=== PATIENT | male | born 1970 | race African-American/Black ===

== ENCOUNTER 2021-04-24 14:55 | Inpatient (IN) | payer OTHER ==
[2021-04-24] MEDS ORDERED: ACETAMINOPHEN 1000 MG/100 ML BAG IVPB ONE (16:29)
[2021-04-24] MEDS ORDERED: ACETAMINOPHEN INJECTION 100 ML IVPB ONE (17:00)
[2021-04-24] MEDS ORDERED: VANCOMYCIN PREMIX 1.75 GM 1,750 MG/350 ML PIGGYBACK IVPB ONE (17:33)
[2021-04-24] MEDS ORDERED: CEFEPIME HCL/D5W 2 GM/50 ML BAG IVPB ONE (17:33)
[2021-04-24] MEDS ORDERED: CEFEPIME 2 GM/100 ML BAG IVPB ONE (17:45)
[2021-04-24 18:24] LABS: BASO % 0.6 % (0-2.0); EOS % 1.5 % (0-4.5); HEMATOCRIT 30.8 % (35.4-49); HEMOGLOBIN 9.9 GM/dL (11.7-16.9); LYMPH % 8.9 % (8-40); MCH 26.8 pg (25.7-33.7); MCHC 32.3 g/dl (32.0-35.9); MEAN CELL VOLUME 83.1 fl (80-96); MEAN PLT VOLUME 6.3 fl (7.5-11.1); MONO % 4.3 % (3.8-10.2); NEUT % 84.7 % (42.8-82.8); PLATELET COUNT 595 10^3/uL (134-434); RBC 3.71 M/mm3 (4.00-5.60); RDW 15.8 % (11.9-15.9); WHITE BLOOD COUNT 20.9 K/mm3 (4.0-10.0)
[2021-04-24 18:29] LABS: INR 1.13 (0.83-1.09)
[2021-04-24 18:32] LABS: ACTIVATED PTT 38.3 SECONDS (25.2-36.5)
[2021-04-24 18:59] LABS: CHLORIDE 96 mmol/L (98-107); SODIUM 137 mmol/L (136-145)
[2021-04-24 19:01] LABS: CALCIUM 10.1 mg/dL (8.5-10.1)
[2021-04-24 19:02] LABS: ALBUMIN 2.6 g/dl (3.4-5.0); ANION GAP 13 MMOL/L (8-16); BLOOD UREA NITROGEN 70.1 mg/dL (7-18); CO2 28 mmol/L (21-32); GLUCOSE,RANDOM 104 mg/dL (74-106)
[2021-04-24 19:05] LABS: PHOSPHOROUS 5.8 mg/dL (2.5-4.9); SGOT/AST 14 U/L (15-37); SGPT/ALT 12 U/L (13-61)
[2021-04-24 19:07] LABS: BILIRUBIN,TOTAL 0.4 mg/dL (0.2-1); TOT PROT 9.2 g/dl (6.4-8.2)
[2021-04-24] MEDS ORDERED: SODIUM CHLORIDE 0.9% 500 ML INFUS.BAG IV ONE ×2 (19:07→22:30)
[2021-04-24 19:08] LABS: ALK PHOS 103 U/L (45-117)
[2021-04-24 19:16] LABS: CREATININE 7.8 mg/dL (0.55-1.3)
[2021-04-24 20:20] LABS: ANISOCYTOSIS 1+; MACROCYTOSIS 1+
[2021-04-24 22:56] LABS: EPI CELLS 1 /uL (0-25.1); HYALINE CASTS 0 /uL (0-3.1); URINE APPEARANCE CLEAR; URINE BACTERIA 2 /uL (0-1359); URINE BILIRUBIN 1+ (NEGATIVE); URINE COLOR ORANGE; URINE GLUCOSE (UA) NEGATIVE (NEGATIVE); URINE KETONE NEGATIVE (NEGATIVE); URINE LEUK ESTERASE TRACE (NEGATIVE); URINE NITRITE NEGATIVE (NEGATIVE); URINE PROTEIN 3+ (NEGATIVE); URINE UROBILINOGEN 0.2 mg/dL (0.2-1.0); URINE WBC 4 /uL (0-25.8)
[2021-04-24] MEDS ORDERED: ACETAMINOPHEN 325 MG TABLET (FP) PO PRN ×2 (23:01→23:10)
[2021-04-24] MEDS ORDERED: ACETAMINOPHEN WITH CODEINE 300MG/30MG TABLET PO PRN (23:06)
[2021-04-24 23:39] LABS: URINE RBC 22.4 /uL (0-23.9)
[2021-04-25] MEDS ORDERED: DIVALPROEX SODIUM 125 MG SPRINKLE CAPS PO SCH ×4 (00:09→22:00)
[2021-04-25] MEDS ORDERED: MELATONIN 5 MG TABLETS PO ONE (00:12)
[2021-04-25] MEDS ORDERED: SENNOSIDES 8.6MG TABLET (FP) PO PRN (00:13)
[2021-04-25] MEDS ORDERED: ONDANSETRON 4 MG TABLET PO PRN (00:18)
[2021-04-25] MEDS ORDERED: VALPROATE SODIUM 500 MG/5 ML VIAL IVPB SCH ×2 (03:45→12:00)
[2021-04-25] MEDS: NYSTATIN POWDER 100,000 UNITS/GM - 15 GM TOPICAL POWDER TP SCH ×3 (07:25→22:08)
[2021-04-25] MEDS: GABAPENTIN 100 MG CAPSULE PO SCH ×4 (07:26→22:11)
[2021-04-25] MEDS: CALCIUM ACETATE 667 MG CAPSULE (FP) PO SCH ×3 (07:26→18:47)
[2021-04-25] MEDS: BENZTROPINE MESYLATE 2 MG TABLET PO SCH ×2 (08:59→22:08)
[2021-04-25] MEDS: OLANZapine 10 MG TABLET PO SCH (09:00)
[2021-04-25] MEDS: CARVEDILOL 6.25 MG TABLET (FP) PO SCH ×2 (09:00→22:07)
[2021-04-25] MEDS: POLYETHYLENE GLYCOL (HEALTHYLAX) 3350 17 GM PACKET PO SCH (09:00)
[2021-04-25] MEDS: VITAMIN B COMP W-C 1 EA TABLET (NEPHRO-VITE) PO SCH ×2 (09:00→18:47)
[2021-04-25 09:25] LABS: HEMATOCRIT 27.7 % (35.4-49); HEMOGLOBIN 8.9 GM/dL (11.7-16.9); MCH 26.7 pg (25.7-33.7); MCHC 32.1 g/dl (32.0-35.9); MEAN CELL VOLUME 83.3 fl (80-96); MEAN PLT VOLUME 6.4 fl (7.5-11.1); PLATELET COUNT 501 10^3/uL (134-434); RBC 3.33 M/mm3 (4.00-5.60); RDW 15.5 % (11.9-15.9); WHITE BLOOD COUNT 22.2 K/mm3 (4.0-10.0)
[2021-04-25 09:29] LABS: CHLORIDE 100 mmol/L (98-107); SODIUM 135 mmol/L (136-145)
[2021-04-25 09:32] LABS: ANION GAP 14 MMOL/L (8-16); CALCIUM 9.1 mg/dL (8.5-10.1); CO2 21 mmol/L (21-32); GLUCOSE,RANDOM 109 mg/dL (74-106)
[2021-04-25 09:33] LABS: BLOOD UREA NITROGEN 78.4 mg/dL (7-18)
[2021-04-25 09:36] LABS: PHOSPHOROUS 6.1 mg/dL (2.5-4.9)
[2021-04-25] MEDS ORDERED: ASPIRIN 81 MG CHEWABLE TABLETS PO SCH (10:00)
[2021-04-25] MEDS ORDERED: SODIUM CHLORIDE 250 ML IV PRN (12:00)
[2021-04-25] MEDS ORDERED: EPOETIN ALFA-EPBX 4,000 UNIT/ML VIAL IVPUSH ONE (12:00)
[2021-04-25 12:11] LABS: ANISOCYTOSIS 1+; MACROCYTOSIS 0; TARGET CELLS 1+
[2021-04-25] MEDS ORDERED: MEROPENEM 1 GM in DEXTROSE 5%-WATER 100 ML IVPB SCH (15:00)
[2021-04-25] MEDS: MEROPENEM 500 MG in DEXTROSE 5%-WATER 100 ML IVPB SCH (19:55)
[2021-04-25] MEDS: DIVALPROEX SODIUM 125 MG SPRINKLE CAPS PO SCH (19:56)
[2021-04-25] MEDS: MELATONIN 1 MG TABLET PO SCH (22:07)
[2021-04-26] MEDS: GABAPENTIN 100 MG CAPSULE PO SCH ×3 (05:51→21:10)
[2021-04-26 07:54] LABS: BASO % 0.3 % (0-2.0); EOS % 0.9 % (0-4.5); HEMATOCRIT 25.2 % (35.4-49); HEMOGLOBIN 8.5 GM/dL (11.7-16.9); LYMPH % 8.7 % (8-40); MCH 27.7 pg (25.7-33.7); MCHC 33.5 g/dl (32.0-35.9); MEAN CELL VOLUME 82.6 fl (80-96); MEAN PLT VOLUME 6.1 fl (7.5-11.1); MONO % 6.3 % (3.8-10.2); NEUT % 83.8 % (42.8-82.8); PLATELET COUNT 436 10^3/uL (134-434); RBC 3.06 M/mm3 (4.00-5.60); RDW 15.5 % (11.9-15.9); WHITE BLOOD COUNT 20.4 K/mm3 (4.0-10.0)
[2021-04-26] MEDS: CALCIUM ACETATE 667 MG CAPSULE (FP) PO SCH ×3 (08:12→17:35)
[2021-04-26 09:50] LABS: ANISOCYTOSIS 2+; MACROCYTOSIS 0
[2021-04-26] MEDS ORDERED: DIVALPROEX SODIUM 125 MG SPRINKLE CAPS PO SCH (10:00)
[2021-04-26] MEDS: CARVEDILOL 6.25 MG TABLET (FP) PO SCH ×2 (10:14→21:10)
[2021-04-26] MEDS: BENZTROPINE MESYLATE 2 MG TABLET PO SCH ×2 (10:14→21:10)
[2021-04-26] MEDS: VITAMIN B COMP W-C 1 EA TABLET (NEPHRO-VITE) PO SCH (10:16)
[2021-04-26] MEDS: POLYETHYLENE GLYCOL (HEALTHYLAX) 3350 17 GM PACKET PO SCH (10:16)
[2021-04-26] MEDS: OLANZapine 10 MG TABLET PO SCH (10:17)
[2021-04-26] MEDS: NYSTATIN POWDER 100,000 UNITS/GM - 15 GM TOPICAL POWDER TP SCH ×2 (10:17→21:10)
[2021-04-26] MEDS: DIVALPROEX SODIUM 125 MG SPRINKLE CAPS PO SCH (11:37)
[2021-04-26] MEDS: AMINO ACIDS/PROTEIN HYDROLYS 30 ML LIQUID.PKT PO SCH (17:35)
[2021-04-26] MEDS: MEROPENEM 500 MG in DEXTROSE 5%-WATER 100 ML IVPB SCH ×2 (18:31)
[2021-04-26] MEDS: MELATONIN 1 MG TABLET PO SCH (21:10)
[2021-04-26] MEDS: DIVALPROEX SODIUM 500 MG TABLET E.C. PO SCH (21:10)
[2021-04-27] MEDS: GABAPENTIN 100 MG CAPSULE PO SCH ×3 (05:40→21:40)
[2021-04-27] MEDS: AMINO ACIDS/PROTEIN HYDROLYS 30 ML LIQUID.PKT PO SCH ×3 (08:00→18:12)
[2021-04-27 08:34] LABS: BASO % 0.4 % (0-2.0); EOS % 1.7 % (0-4.5); HEMATOCRIT 22.9 % (35.4-49); HEMOGLOBIN 7.6 GM/dL (11.7-16.9); LYMPH % 7.9 % (8-40); MCH 27.2 pg (25.7-33.7); MCHC 32.9 g/dl (32.0-35.9); MEAN CELL VOLUME 82.6 fl (80-96); MEAN PLT VOLUME 6.2 fl (7.5-11.1); MONO % 4.6 % (3.8-10.2); NEUT % 85.4 % (42.8-82.8); PLATELET COUNT 452 10^3/uL (134-434); RBC 2.78 M/mm3 (4.00-5.60); RDW 15.7 % (11.9-15.9); WHITE BLOOD COUNT 23.3 K/mm3 (4.0-10.0)
[2021-04-27 08:57] LABS: CALCIUM 9.4 mg/dL (8.5-10.1)
[2021-04-27 08:58] LABS: ALBUMIN 2.2 g/dl (3.4-5.0); BLOOD UREA NITROGEN 55.1 mg/dL (7-18)
[2021-04-27 09:01] LABS: CREATININE 6.7 mg/dL (0.55-1.3)
[2021-04-27 09:03] LABS: BILIRUBIN,TOTAL 0.3 mg/dL (0.2-1); TOT PROT 7.4 g/dl (6.4-8.2)
[2021-04-27] MEDS: DIVALPROEX SODIUM 500 MG TABLET E.C. PO SCH ×2 (09:30→21:40)
[2021-04-27] MEDS: ACETAMINOPHEN WITH CODEINE 300MG/30MG TABLET PO PRN (09:30)
[2021-04-27] MEDS: CARVEDILOL 6.25 MG TABLET (FP) PO SCH ×2 (09:31→21:40)
[2021-04-27] MEDS: OLANZapine 10 MG TABLET PO SCH (09:31)
[2021-04-27] MEDS: CALCIUM ACETATE 667 MG CAPSULE (FP) PO SCH ×3 (09:32→18:12)
[2021-04-27] MEDS: POLYETHYLENE GLYCOL (HEALTHYLAX) 3350 17 GM PACKET PO SCH (09:33)
[2021-04-27] MEDS: BENZTROPINE MESYLATE 2 MG TABLET PO SCH ×2 (09:33→21:40)
[2021-04-27] MEDS: NYSTATIN POWDER 100,000 UNITS/GM - 15 GM TOPICAL POWDER TP SCH ×2 (09:34→21:41)
[2021-04-27] MEDS: ZINC SULFATE 220 MG CAPSULE (FP) PO SCH (09:37)
[2021-04-27] MEDS: VITAMIN B COMP W-C 1 EA TABLET (NEPHRO-VITE) PO SCH (09:37)
[2021-04-27 10:07] LABS: ANISOCYTOSIS 1+; MACROCYTOSIS 0; PLATELET ESTIMATE INCREASED; TARGET CELLS 1+
[2021-04-27] MEDS: MEROPENEM 500 MG in DEXTROSE 5%-WATER 100 ML IVPB SCH (16:18)
[2021-04-27] MEDS: MELATONIN 1 MG TABLET PO SCH (21:40)
[2021-04-28] MEDS: GABAPENTIN 100 MG CAPSULE PO SCH ×3 (05:27→22:28)
[2021-04-28] MEDS: ACETAMINOPHEN WITH CODEINE 300MG/30MG TABLET PO PRN (09:27)
[2021-04-28] MEDS: POLYETHYLENE GLYCOL (HEALTHYLAX) 3350 17 GM PACKET PO SCH (09:28)
[2021-04-28] MEDS: CARVEDILOL 6.25 MG TABLET (FP) PO SCH ×2 (09:28→22:50)
[2021-04-28] MEDS: VITAMIN B COMP W-C 1 EA TABLET (NEPHRO-VITE) PO SCH (09:28)
[2021-04-28] MEDS: BENZTROPINE MESYLATE 2 MG TABLET PO SCH ×2 (09:28→22:28)
[2021-04-28] MEDS: AMINO ACIDS/PROTEIN HYDROLYS 30 ML LIQUID.PKT PO SCH ×3 (09:28→17:57)
[2021-04-28] MEDS: OLANZapine 10 MG TABLET PO SCH (09:28)
[2021-04-28] MEDS: ZINC SULFATE 220 MG CAPSULE (FP) PO SCH (09:28)
[2021-04-28] MEDS: NYSTATIN POWDER 100,000 UNITS/GM - 15 GM TOPICAL POWDER TP SCH ×2 (09:28→22:29)
[2021-04-28] MEDS: DIVALPROEX SODIUM 500 MG TABLET E.C. PO SCH ×2 (09:28→22:28)
[2021-04-28] MEDS: CALCIUM ACETATE 667 MG CAPSULE (FP) PO SCH ×4 (09:28→17:57)
[2021-04-28] MEDS ORDERED: EPOETIN ALFA-EPBX 10,000 UNIT/ML VIAL IVPUSH ONE (12:00)
[2021-04-28] MEDS ORDERED: SODIUM CHLORIDE 250 ML IV PRN (12:00)
[2021-04-28 13:03] LABS: HEMATOCRIT 23.4 % (35.4-49); HEMOGLOBIN 7.5 GM/dL (11.7-16.9); MCH 26.8 pg (25.7-33.7); MEAN CELL VOLUME 83.5 fl (80-96); MEAN PLT VOLUME 6.3 fl (7.5-11.1); PLATELET COUNT 492 10^3/uL (134-434); RDW 15.4 % (11.9-15.9); WHITE BLOOD COUNT 20.6 K/mm3 (4.0-10.0)
[2021-04-28 13:28] LABS: BLOOD UREA NITROGEN 66.5 mg/dL (7-18); CALCIUM 9.8 mg/dL (8.5-10.1)
[2021-04-28 13:32] LABS: CREATININE 7.4 mg/dL (0.55-1.3)
[2021-04-28] MEDS: ERTAPENEM SODIUM 0.5 GM in SODIUM CHLORIDE 50 ML IVPB SCH (14:39)
[2021-04-28] MEDS: MELATONIN 1 MG TABLET PO SCH (22:28)
[2021-04-29] MEDS: GABAPENTIN 100 MG CAPSULE PO SCH ×3 (06:20→21:48)
[2021-04-29] MEDS: CARVEDILOL 6.25 MG TABLET (FP) PO SCH ×2 (10:42→21:48)
[2021-04-29] MEDS: DIVALPROEX SODIUM 500 MG TABLET E.C. PO SCH ×2 (10:42→21:48)
[2021-04-29] MEDS: VITAMIN B COMP W-C 1 EA TABLET (NEPHRO-VITE) PO SCH (10:42)
[2021-04-29] MEDS: ZINC SULFATE 220 MG CAPSULE (FP) PO SCH (10:42)
[2021-04-29] MEDS: POLYETHYLENE GLYCOL (HEALTHYLAX) 3350 17 GM PACKET PO SCH (10:42)
[2021-04-29] MEDS: CALCIUM ACETATE 667 MG CAPSULE (FP) PO SCH ×3 (10:42→17:39)
[2021-04-29] MEDS: OLANZapine 10 MG TABLET PO SCH (10:42)
[2021-04-29] MEDS: BENZTROPINE MESYLATE 2 MG TABLET PO SCH ×2 (10:42→21:49)
[2021-04-29] MEDS: AMINO ACIDS/PROTEIN HYDROLYS 30 ML LIQUID.PKT PO SCH ×3 (10:42→17:39)
[2021-04-29] MEDS: NYSTATIN POWDER 100,000 UNITS/GM - 15 GM TOPICAL POWDER TP SCH ×2 (10:43→21:49)
[2021-04-29] MEDS: ERTAPENEM SODIUM 0.5 GM in SODIUM CHLORIDE 50 ML IVPB SCH (12:07)
[2021-04-29] MEDS ORDERED: traMADol HCL 50 MG TABLET PO PRN (12:28)
[2021-04-29] MEDS ORDERED: SODIUM CHLORIDE 250 ML IV PRN ×2 (12:48→12:50)
[2021-04-29] MEDS: COLLAGENASE CLOSTRIDIUM HIST. 30 GRAMS TUBE TP SCH (14:27)
[2021-04-29] MEDS: MELATONIN 1 MG TABLET PO SCH (21:48)
[2021-04-30] MEDS: GABAPENTIN 100 MG CAPSULE PO SCH ×3 (05:36→21:43)
[2021-04-30] MEDS: AMINO ACIDS/PROTEIN HYDROLYS 30 ML LIQUID.PKT PO SCH ×3 (08:18→17:54)
[2021-04-30] MEDS: CALCIUM ACETATE 667 MG CAPSULE (FP) PO SCH ×3 (08:18→17:54)
[2021-04-30 08:40] LABS: BASO % 0.7 % (0-2.0); EOS % 3.2 % (0-4.5); HEMATOCRIT 24.9 % (35.4-49); HEMOGLOBIN 8.2 GM/dL (11.7-16.9); MCH 27.6 pg (25.7-33.7); MCHC 32.9 g/dl (32.0-35.9); MEAN CELL VOLUME 83.8 fl (80-96); MEAN PLT VOLUME 6.2 fl (7.5-11.1); MONO % 6.3 % (3.8-10.2); NEUT % 76.8 % (42.8-82.8); PLATELET COUNT 524 10^3/uL (134-434); RBC 2.97 M/mm3 (4.00-5.60); RDW 15.3 % (11.9-15.9); WHITE BLOOD COUNT 13.5 K/mm3 (4.0-10.0)
[2021-04-30 09:55] LABS: ERYTHROCYTE SEDIMENTATION RATE 123 mm/hr (0-20)
[2021-04-30] MEDS: POLYETHYLENE GLYCOL (HEALTHYLAX) 3350 17 GM PACKET PO SCH (09:58)
[2021-04-30] MEDS: VITAMIN B COMP W-C 1 EA TABLET (NEPHRO-VITE) PO SCH (09:58)
[2021-04-30] MEDS: DIVALPROEX SODIUM 500 MG TABLET E.C. PO SCH ×2 (09:58→21:43)
[2021-04-30] MEDS: OLANZapine 10 MG TABLET PO SCH (09:58)
[2021-04-30] MEDS: BENZTROPINE MESYLATE 2 MG TABLET PO SCH ×2 (09:58→21:45)
[2021-04-30] MEDS: CARVEDILOL 6.25 MG TABLET (FP) PO SCH ×2 (09:58→21:43)
[2021-04-30] MEDS: ZINC SULFATE 220 MG CAPSULE (FP) PO SCH (09:58)
[2021-04-30] MEDS: NYSTATIN POWDER 100,000 UNITS/GM - 15 GM TOPICAL POWDER TP SCH ×2 (09:59→21:44)
[2021-04-30] MEDS: COLLAGENASE CLOSTRIDIUM HIST. 30 GRAMS TUBE TP SCH (09:59)
[2021-04-30] MEDS: ERTAPENEM SODIUM 0.5 GM in SODIUM CHLORIDE 50 ML IVPB SCH ×2 (14:20→17:54)
[2021-04-30] MEDS ORDERED: EPOETIN ALFA-EPBX 10,000 UNIT/ML VIAL IVPUSH ONE (15:00)
[2021-04-30] MEDS: MELATONIN 1 MG TABLET PO SCH (21:43)
[2021-04-30] MEDS: HEPARIN NA (PORCINE) 5,000 UNITS/ML 1ML VIAL SQ SCH (21:43)
[2021-05-01] MEDS: GABAPENTIN 100 MG CAPSULE PO SCH ×3 (06:09→22:08)
[2021-05-01] MEDS: CALCIUM ACETATE 667 MG CAPSULE (FP) PO SCH ×3 (08:07→17:56)
[2021-05-01] MEDS: AMINO ACIDS/PROTEIN HYDROLYS 30 ML LIQUID.PKT PO SCH ×3 (08:07→17:56)
[2021-05-01 08:53] LABS: BASO % 0.6 % (0-2.0); EOS % 1.5 % (0-4.5); HEMATOCRIT 25.9 % (35.4-49); HEMOGLOBIN 8.2 GM/dL (11.7-16.9); LYMPH % 9.9 % (8-40); MCH 26.7 pg (25.7-33.7); MCHC 31.8 g/dl (32.0-35.9); MEAN CELL VOLUME 83.9 fl (80-96); MEAN PLT VOLUME 6.3 fl (7.5-11.1); MONO % 6.4 % (3.8-10.2); NEUT % 81.6 % (42.8-82.8); PLATELET COUNT 551 10^3/uL (134-434); RBC 3.09 M/mm3 (4.00-5.60); RDW 15.3 % (11.9-15.9); WHITE BLOOD COUNT 16.6 K/mm3 (4.0-10.0)
[2021-05-01] MEDS: DIVALPROEX SODIUM 500 MG TABLET E.C. PO SCH ×2 (10:06→22:07)
[2021-05-01] MEDS: POLYETHYLENE GLYCOL (HEALTHYLAX) 3350 17 GM PACKET PO SCH (10:06)
[2021-05-01] MEDS: BENZTROPINE MESYLATE 2 MG TABLET PO SCH ×2 (10:06→22:08)
[2021-05-01] MEDS: CARVEDILOL 6.25 MG TABLET (FP) PO SCH ×2 (10:06→22:08)
[2021-05-01] MEDS: HEPARIN NA (PORCINE) 5,000 UNITS/ML 1ML VIAL SQ SCH ×2 (10:07→22:08)
[2021-05-01] MEDS: VITAMIN B COMP W-C 1 EA TABLET (NEPHRO-VITE) PO SCH (10:07)
[2021-05-01] MEDS: ZINC SULFATE 220 MG CAPSULE (FP) PO SCH (10:07)
[2021-05-01] MEDS: OLANZapine 10 MG TABLET PO SCH (10:07)
[2021-05-01] MEDS: COLLAGENASE CLOSTRIDIUM HIST. 30 GRAMS TUBE TP SCH (10:09)
[2021-05-01] MEDS: NYSTATIN POWDER 100,000 UNITS/GM - 15 GM TOPICAL POWDER TP SCH ×2 (10:09→22:09)
[2021-05-01] MEDS: ERTAPENEM SODIUM 0.5 GM in SODIUM CHLORIDE 50 ML IVPB SCH (11:49)
[2021-05-01] MEDS ORDERED: INSULIN (NOVOLOG) ASPART 100 UNITS/ML 10ML VIAL ONE (17:32)
[2021-05-01] MEDS: MELATONIN 1 MG TABLET PO SCH (22:08)
[2021-05-02] MEDS: GABAPENTIN 100 MG CAPSULE PO SCH ×3 (06:46→22:27)
[2021-05-02] MEDS: CALCIUM ACETATE 667 MG CAPSULE (FP) PO SCH ×3 (08:54→19:42)
[2021-05-02] MEDS: AMINO ACIDS/PROTEIN HYDROLYS 30 ML LIQUID.PKT PO SCH ×3 (08:55→19:42)
[2021-05-02] MEDS: BENZTROPINE MESYLATE 2 MG TABLET PO SCH ×2 (10:49→22:26)
[2021-05-02] MEDS: CARVEDILOL 6.25 MG TABLET (FP) PO SCH ×2 (10:49→22:28)
[2021-05-02] MEDS: VITAMIN B COMP W-C 1 EA TABLET (NEPHRO-VITE) PO SCH (10:50)
[2021-05-02] MEDS: ZINC SULFATE 220 MG CAPSULE (FP) PO SCH (10:50)
[2021-05-02] MEDS: DIVALPROEX SODIUM 500 MG TABLET E.C. PO SCH ×2 (10:50→22:26)
[2021-05-02] MEDS: POLYETHYLENE GLYCOL (HEALTHYLAX) 3350 17 GM PACKET PO SCH (10:50)
[2021-05-02] MEDS: OLANZapine 10 MG TABLET PO SCH (10:51)
[2021-05-02] MEDS: HEPARIN NA (PORCINE) 5,000 UNITS/ML 1ML VIAL SQ SCH ×2 (10:51→22:27)
[2021-05-02] MEDS ORDERED: SODIUM CHLORIDE 250 ML IV PRN (10:52)
[2021-05-02] MEDS: NYSTATIN POWDER 100,000 UNITS/GM - 15 GM TOPICAL POWDER TP SCH ×2 (10:53→22:27)
[2021-05-02] MEDS: COLLAGENASE CLOSTRIDIUM HIST. 30 GRAMS TUBE TP SCH (10:53)
[2021-05-02] MEDS ORDERED: EPOETIN ALFA-EPBX 10,000 UNIT/ML VIAL IVPUSH ONE (12:00)
[2021-05-02] MEDS: ERTAPENEM SODIUM 0.5 GM in SODIUM CHLORIDE 50 ML IVPB SCH (14:00)
[2021-05-02] MEDS: ALBUTEROL SO4 2.5/IPRATROPIUM 0.5 INH SOL 3 ML VIAL.NEB. NEB SCH ×2 (16:38→21:00)
[2021-05-02] MEDS ORDERED: ACETAMINOPHEN 1000 MG/100 ML BAG IVPB PRN (17:40)
[2021-05-02] MEDS ORDERED: SODIUM CHLORIDE 250 ML IV STA (20:38)
[2021-05-02] MEDS: MELATONIN 1 MG TABLET PO SCH (22:26)
[2021-05-03] MEDS ORDERED: ACETAMINOPHEN 325 MG TABLET (FP) PO PRN (01:38)
[2021-05-03] MEDS ORDERED: SENNOSIDES 8.6MG TABLET (FP) PO PRN (01:38)
[2021-05-03] MEDS ORDERED: ONDANSETRON 4 MG TABLET PO PRN (01:38)
[2021-05-03] MEDS ORDERED: ACETAMINOPHEN 1000 MG/100 ML BAG IVPB PRN ×2 (01:38→10:10)
[2021-05-03] MEDS: GABAPENTIN 100 MG CAPSULE PO SCH ×3 (05:54→21:34)
[2021-05-03] MEDS ORDERED: SODIUM CHLORIDE 250 ML IV STA ×2 (06:00→06:50)
[2021-05-03] MEDS: ALBUTEROL SO4 2.5/IPRATROPIUM 0.5 INH SOL 3 ML VIAL.NEB. NEB SCH ×4 (07:45→20:44)
[2021-05-03] MEDS: NYSTATIN POWDER 100,000 UNITS/GM - 15 GM TOPICAL POWDER TP SCH ×2 (10:00→21:37)
[2021-05-03] MEDS ORDERED: CARVEDILOL 6.25 MG TABLET (FP) PO SCH (10:00)
[2021-05-03] MEDS: AMINO ACIDS/PROTEIN HYDROLYS 30 ML LIQUID.PKT PO SCH ×3 (10:42→16:45)
[2021-05-03] MEDS: CALCIUM ACETATE 667 MG CAPSULE (FP) PO SCH ×3 (10:42→16:47)
[2021-05-03] MEDS: BENZTROPINE MESYLATE 2 MG TABLET PO SCH ×2 (10:42→23:05)
[2021-05-03] MEDS: POLYETHYLENE GLYCOL (HEALTHYLAX) 3350 17 GM PACKET PO SCH (10:43)
[2021-05-03] MEDS: DIVALPROEX SODIUM 500 MG TABLET E.C. PO SCH ×2 (10:43→23:05)
[2021-05-03] MEDS: HEPARIN NA (PORCINE) 5,000 UNITS/ML 1ML VIAL SQ SCH ×2 (10:43→21:32)
[2021-05-03] MEDS: VITAMIN B COMP W-C 1 EA TABLET (NEPHRO-VITE) PO SCH (10:44)
[2021-05-03] MEDS: ZINC SULFATE 220 MG CAPSULE (FP) PO SCH (10:44)
[2021-05-03] MEDS: OLANZapine 10 MG TABLET PO SCH (10:44)
[2021-05-03] MEDS ORDERED: VANCOMYCIN 1,000 MG in DEXTROSE 5%-WATER - 250 ML IVPB ONE (11:00)
[2021-05-03] MEDS ORDERED: VANCOMYCIN/WATER FOR INJ (PEG) 1 GM/200 ML BAG IVPB ONE (11:26)
[2021-05-03] MEDS: COLLAGENASE CLOSTRIDIUM HIST. 30 GRAMS TUBE TP SCH (12:05)
[2021-05-03] MEDS: ERTAPENEM SODIUM 0.5 GM in SODIUM CHLORIDE 50 ML IVPB SCH (12:10)
[2021-05-03 12:19] LABS: ARTERIAL BLD GAS O2 SATURATION 96.4 % (95-98); ARTERIAL BLOOD GAS BASE EXCESS 4.9 mmol/L (-2-2); ARTERIAL BLOOD GAS PO2 87.3 mmHg (80-100); ARTERIAL BLOOD GAS pH 7.391 (7.350-7.450)
[2021-05-03 12:22] LABS: ALLENS TEST POSITIVE
[2021-05-03 12:29] LABS: HEMATOCRIT 23.9 % (35.4-49); HEMOGLOBIN 7.8 GM/dL (11.7-16.9); MCH 27.5 pg (25.7-33.7); MCHC 32.6 g/dl (32.0-35.9); MEAN CELL VOLUME 84.2 fl (80-96); MEAN PLT VOLUME 6.4 fl (7.5-11.1); PLATELET COUNT 522 10^3/uL (134-434); RBC 2.84 M/mm3 (4.00-5.60); RDW 15.9 % (11.9-15.9); WHITE BLOOD COUNT 24.1 K/mm3 (4.0-10.0)
[2021-05-03 13:00] LABS: ALBUMIN 1.8 g/dl (3.4-5.0); CALCIUM 8.6 mg/dL (8.5-10.1)
[2021-05-03 13:03] LABS: CREATININE 4.5 mg/dL (0.55-1.3)
[2021-05-03 13:04] LABS: BILIRUBIN,TOTAL 0.3 mg/dL (0.2-1); TOT PROT 6.8 g/dl (6.4-8.2)
[2021-05-03 13:05] LABS: BLOOD UREA NITROGEN 38.2 mg/dL (7-18)
[2021-05-03 13:47] LABS: ANISOCYTOSIS 0; MACROCYTOSIS 0
[2021-05-03] MEDS ORDERED: ALBUMIN HUMAN 25% 12.5 GM/50 ML VIAL IV ONE (21:30)
[2021-05-03] MEDS: MUPIROCIN 2% TOPICAL OINTMENT FOR DECOLONIZATION NS SCH (21:32)
[2021-05-03] MEDS: CHLORHEXIDINE GLUCONATE 4% CLEANSER FOR DECOLONIZATION TP SCH (21:36)
[2021-05-03] MEDS ORDERED: DEXTROSE 50%-WATER - 25 GM/50 ML VIAL IVPUSH ONE (22:02)
[2021-05-03] MEDS ORDERED: DEXTROSE 50%-WATER 25 GM/50 ML DISP.SYRIN ONE (22:14)
[2021-05-03] MEDS: MELATONIN 1 MG TABLET PO SCH (23:05)
[2021-05-04] MEDS ORDERED: DEXTROSE 50%-WATER - 25 GM/50 ML VIAL IVPUSH ONE (06:07)
[2021-05-04] MEDS: GABAPENTIN 100 MG CAPSULE PO SCH (06:07)
[2021-05-04] MEDS ORDERED: DEXTROSE 50%-WATER 25 GM/50 ML DISP.SYRIN ONE (06:10)
[2021-05-04 06:57] LABS: INR 1.22 (0.83-1.09); PROTHROMBIN TIME (PATIENT) 14.1 SEC (9.7-13.0)
[2021-05-04 07:00] LABS: ACTIVATED PTT 34.3 SECONDS (25.2-36.5)
[2021-05-04 07:03] LABS: HEMATOCRIT 22.8 % (35.4-49); HEMOGLOBIN 7.2 GM/dL (11.7-16.9); MCH 26.5 pg (25.7-33.7); MCHC 31.4 g/dl (32.0-35.9); MEAN CELL VOLUME 84.3 fl (80-96); MEAN PLT VOLUME 6.5 fl (7.5-11.1); PLATELET COUNT 636 10^3/uL (134-434); RBC 2.71 M/mm3 (4.00-5.60); RDW 15.8 % (11.9-15.9); WHITE BLOOD COUNT 22.9 K/mm3 (4.0-10.0)
[2021-05-04 07:12] LABS: CHLORIDE 103 mmol/L (98-107); SODIUM 143 mmol/L (136-145)
[2021-05-04 07:16] LABS: ALBUMIN 1.9 g/dl (3.4-5.0); ANION GAP 11 MMOL/L (8-16); BLOOD UREA NITROGEN 47.6 mg/dL (7-18); CALCIUM 8.5 mg/dL (8.5-10.1); CO2 29 mmol/L (21-32); GLUCOSE,RANDOM 71 mg/dL (74-106); MAGNESIUM 2.3 mg/dL (1.8-2.4)
[2021-05-04 07:18] LABS: CREATININE 5.1 mg/dL (0.55-1.3); PHOSPHOROUS 4.9 mg/dL (2.5-4.9); SGOT/AST 11 U/L (15-37)
[2021-05-04 07:21] LABS: ALK PHOS 88 U/L (45-117); BILIRUBIN,TOTAL 0.3 mg/dL (0.2-1); SGPT/ALT < 6 U/L (13-61); TOT PROT 6.8 g/dl (6.4-8.2)
[2021-05-04] MEDS: ALBUTEROL SO4 2.5/IPRATROPIUM 0.5 INH SOL 3 ML VIAL.NEB. NEB SCH ×4 (08:35→20:08)
[2021-05-04] MEDS: CALCIUM ACETATE 667 MG CAPSULE (FP) PO SCH ×3 (08:49→16:51)
[2021-05-04] MEDS: AMINO ACIDS/PROTEIN HYDROLYS 30 ML LIQUID.PKT PO SCH ×3 (08:49→16:51)
[2021-05-04] MEDS: POLYETHYLENE GLYCOL (HEALTHYLAX) 3350 17 GM PACKET PO SCH (10:28)
[2021-05-04] MEDS: MUPIROCIN 2% TOPICAL OINTMENT FOR DECOLONIZATION NS SCH ×2 (10:28→21:26)
[2021-05-04] MEDS: HEPARIN NA (PORCINE) 5,000 UNITS/ML 1ML VIAL SQ SCH ×2 (10:29→21:25)
[2021-05-04] MEDS: ZINC SULFATE 220 MG CAPSULE (FP) PO SCH (10:30)
[2021-05-04] MEDS: NYSTATIN POWDER 100,000 UNITS/GM - 15 GM TOPICAL POWDER TP SCH ×2 (10:30→21:26)
[2021-05-04] MEDS: VITAMIN B COMP W-C 1 EA TABLET (NEPHRO-VITE) PO SCH (10:30)
[2021-05-04] MEDS: COLLAGENASE CLOSTRIDIUM HIST. 30 GRAMS TUBE TP SCH (10:31)
[2021-05-04 10:39] LABS: ANISOCYTOSIS 1+; MACROCYTOSIS 0
[2021-05-04] MEDS ORDERED: VANCOMYCIN/WATER FOR INJ (PEG) 1,000 MG/200 ML BAG IVPB ONE (11:00)
[2021-05-04] MEDS: ERTAPENEM SODIUM 0.5 GM in SODIUM CHLORIDE 50 ML IVPB SCH (11:02)
[2021-05-04] MEDS ORDERED: MEROPENEM 500 MG VIAL (RESTRICTED TO ID) IVPB ONE (20:59)
[2021-05-04] MEDS ORDERED: DEXTROSE 5%-WATER 100 ML IVPB ONE (21:00)
[2021-05-04] MEDS: MEROPENEM 500 MG in DEXTROSE 5%-WATER 100 ML IVPB SCH (21:26)
[2021-05-04] MEDS: MELATONIN 1 MG TABLET PO SCH (21:26)
[2021-05-04] MEDS: CHLORHEXIDINE GLUCONATE 4% CLEANSER FOR DECOLONIZATION TP SCH (21:26)
[2021-05-05] MEDS ORDERED: EPOETIN ALFA 10,000 UNIT/1 ML VIAL IVPUSH ONE (07:30)
[2021-05-05] MEDS: ALBUTEROL SO4 2.5/IPRATROPIUM 0.5 INH SOL 3 ML VIAL.NEB. NEB SCH ×4 (07:50→20:40)
[2021-05-05] MEDS: AMINO ACIDS/PROTEIN HYDROLYS 30 ML LIQUID.PKT PO SCH ×3 (08:50→16:48)
[2021-05-05] MEDS: CALCIUM ACETATE 667 MG CAPSULE (FP) PO SCH ×3 (08:50→16:48)
[2021-05-05 09:26] LABS: BASO % 0.6 % (0-2.0); HEMATOCRIT 24.9 % (35.4-49); HEMOGLOBIN 7.9 GM/dL (11.7-16.9); LYMPH % 5.9 % (8-40); MCH 27.1 pg (25.7-33.7); MCHC 31.6 g/dl (32.0-35.9); MEAN CELL VOLUME 85.7 fl (80-96); MEAN PLT VOLUME 6.3 fl (7.5-11.1); MONO % 6.1 % (3.8-10.2); NEUT % 85.4 % (42.8-82.8); PLATELET COUNT 622 10^3/uL (134-434); RDW 15.5 % (11.9-15.9); WHITE BLOOD COUNT 15.8 K/mm3 (4.0-10.0)
[2021-05-05 09:46] LABS: INR 1.36 (0.83-1.09); PROTHROMBIN TIME (PATIENT) 15.7 SEC (9.7-13.0)
[2021-05-05 10:20] LABS: ACTIVATED PTT 222.9 SECONDS (25.2-36.5)
[2021-05-05] MEDS: HEPARIN NA (PORCINE) 5,000 UNITS/ML 1ML VIAL SQ SCH ×2 (10:30→21:25)
[2021-05-05] MEDS: VITAMIN B COMP W-C 1 EA TABLET (NEPHRO-VITE) PO SCH (10:30)
[2021-05-05] MEDS: BENZTROPINE MESYLATE 2 MG TABLET PO SCH ×2 (10:30→21:24)
[2021-05-05] MEDS: ZINC SULFATE 220 MG CAPSULE (FP) PO SCH (10:30)
[2021-05-05] MEDS: DIVALPROEX SODIUM 500 MG TABLET E.C. PO SCH ×2 (10:30→21:24)
[2021-05-05] MEDS: OLANZapine 10 MG TABLET PO SCH (10:30)
[2021-05-05] MEDS: POLYETHYLENE GLYCOL (HEALTHYLAX) 3350 17 GM PACKET PO SCH (10:30)
[2021-05-05] MEDS ORDERED: DEXTROSE 5%-WATER 100 ML IVPB ONE ×2 (10:43→21:09)
[2021-05-05] MEDS ORDERED: MEROPENEM 500 MG VIAL (RESTRICTED TO ID) IVPB ONE ×2 (10:43→21:09)
[2021-05-05] MEDS: NYSTATIN POWDER 100,000 UNITS/GM - 15 GM TOPICAL POWDER TP SCH ×2 (10:45→21:26)
[2021-05-05] MEDS: MUPIROCIN 2% TOPICAL OINTMENT FOR DECOLONIZATION NS SCH ×2 (10:45→21:24)
[2021-05-05] MEDS: MEROPENEM 500 MG in DEXTROSE 5%-WATER 100 ML IVPB SCH ×2 (10:45→21:23)
[2021-05-05] MEDS: COLLAGENASE CLOSTRIDIUM HIST. 30 GRAMS TUBE TP SCH (10:45)
[2021-05-05 11:11] LABS: CHLORIDE 110 mmol/L (98-107); SODIUM 146 mmol/L (136-145)
[2021-05-05 11:53] LABS: ALBUMIN 1.8 g/dl (3.4-5.0); ALK PHOS 105 U/L (45-117); ANION GAP 10 MMOL/L (8-16); BILIRUBIN,TOTAL 0.3 mg/dL (0.2-1); CALCIUM 8.3 mg/dL (8.5-10.1); CO2 26 mmol/L (21-32); CREATININE 4.5 mg/dL (0.55-1.3); GLUCOSE,RANDOM 112 mg/dL (74-106); MAGNESIUM 2.4 mg/dL (1.8-2.4); PHOSPHOROUS 4.2 mg/dL (2.5-4.9); SGOT/AST 9 U/L (15-37); SGPT/ALT < 6 U/L (13-61); TOT PROT 6.6 g/dl (6.4-8.2)
[2021-05-05] MEDS: GABAPENTIN 100 MG CAPSULE PO SCH ×2 (14:25→21:23)
[2021-05-05 15:51] VITALS: BMI 22.9
[2021-05-05] MEDS: MIDODRINE HCL 2.5 MG TABLET PO SCH (17:11)
[2021-05-05] MEDS: MELATONIN 1 MG TABLET PO SCH (21:25)
[2021-05-05] MEDS: CHLORHEXIDINE GLUCONATE 4% CLEANSER FOR DECOLONIZATION TP SCH (21:26)
[2021-05-06] MEDS: GABAPENTIN 100 MG CAPSULE PO SCH ×3 (05:40→22:19)
[2021-05-06] MEDS ORDERED: MEROPENEM 500 MG VIAL (RESTRICTED TO ID) IVPB ONE ×2 (07:45→22:10)
[2021-05-06] MEDS ORDERED: DEXTROSE 5%-WATER 100 ML IVPB ONE ×2 (07:45→22:10)
[2021-05-06] MEDS: ALBUTEROL SO4 2.5/IPRATROPIUM 0.5 INH SOL 3 ML VIAL.NEB. NEB SCH ×4 (08:30→20:35)
[2021-05-06] MEDS: AMINO ACIDS/PROTEIN HYDROLYS 30 ML LIQUID.PKT PO SCH ×3 (08:56→16:39)
[2021-05-06] MEDS: CALCIUM ACETATE 667 MG CAPSULE (FP) PO SCH ×3 (08:56→16:39)
[2021-05-06] MEDS: ZINC SULFATE 220 MG CAPSULE (FP) PO SCH (09:02)
[2021-05-06] MEDS: VITAMIN B COMP W-C 1 EA TABLET (NEPHRO-VITE) PO SCH (09:02)
[2021-05-06] MEDS: DIVALPROEX SODIUM 500 MG TABLET E.C. PO SCH ×2 (09:02→22:14)
[2021-05-06] MEDS: HEPARIN NA (PORCINE) 5,000 UNITS/ML 1ML VIAL SQ SCH ×2 (09:02→22:14)
[2021-05-06] MEDS: MUPIROCIN 2% TOPICAL OINTMENT FOR DECOLONIZATION NS SCH ×2 (09:03→22:13)
[2021-05-06] MEDS: NYSTATIN POWDER 100,000 UNITS/GM - 15 GM TOPICAL POWDER TP SCH ×2 (09:03→22:17)
[2021-05-06] MEDS: OLANZapine 10 MG TABLET PO SCH (09:03)
[2021-05-06] MEDS: POLYETHYLENE GLYCOL (HEALTHYLAX) 3350 17 GM PACKET PO SCH (09:03)
[2021-05-06] MEDS: COLLAGENASE CLOSTRIDIUM HIST. 30 GRAMS TUBE TP SCH (09:03)
[2021-05-06] MEDS: MIDODRINE HCL 2.5 MG TABLET PO SCH ×3 (09:03→17:10)
[2021-05-06] MEDS: BENZTROPINE MESYLATE 2 MG TABLET PO SCH ×2 (09:03→22:13)
[2021-05-06] MEDS: MEROPENEM 500 MG in DEXTROSE 5%-WATER 100 ML IVPB SCH ×2 (09:03→22:15)
[2021-05-06 12:47] LABS: CHLORIDE 105 mmol/L (98-107); SODIUM 142 mmol/L (136-145)
[2021-05-06 12:49] LABS: ALBUMIN 1.8 g/dl (3.4-5.0); ANION GAP 11 MMOL/L (8-16); BLOOD UREA NITROGEN 42.8 mg/dL (7-18); CALCIUM 8.2 mg/dL (8.5-10.1); CO2 27 mmol/L (21-32); GLUCOSE,RANDOM 111 mg/dL (74-106); MAGNESIUM 2.4 mg/dL (1.8-2.4)
[2021-05-06 12:52] LABS: CREATININE 4.6 mg/dL (0.55-1.3); PHOSPHOROUS 4.3 mg/dL (2.5-4.9); SGOT/AST 9 U/L (15-37)
[2021-05-06 12:54] LABS: BILIRUBIN,TOTAL 0.2 mg/dL (0.2-1); TOT PROT 6.8 g/dl (6.4-8.2)
[2021-05-06 12:55] LABS: ALK PHOS 98 U/L (45-117)
[2021-05-06 13:03] LABS: SGPT/ALT < 6 U/L (13-61)
[2021-05-06] MEDS: CHLORHEXIDINE GLUCONATE 4% CLEANSER FOR DECOLONIZATION TP SCH (22:14)
[2021-05-06] MEDS: MELATONIN 1 MG TABLET PO SCH (22:16)
[2021-05-07] MEDS ORDERED: DEXTROSE 50%-WATER - 25 GM/50 ML VIAL IVPUSH ONE (06:05)
[2021-05-07] MEDS: GABAPENTIN 100 MG CAPSULE PO SCH ×3 (06:06→22:03)
[2021-05-07] MEDS ORDERED: DEXTROSE 50%-WATER 25 GM/50 ML DISP.SYRIN ONE (06:21)
[2021-05-07 06:41] LABS: BASO % 0.8 % (0-2.0); EOS % 2.8 % (0-4.5); HEMATOCRIT 24.5 % (35.4-49); HEMOGLOBIN 7.7 GM/dL (11.7-16.9); LYMPH % 14.2 % (8-40); MCH 26.7 pg (25.7-33.7); MCHC 31.4 g/dl (32.0-35.9); MEAN PLT VOLUME 6.1 fl (7.5-11.1); MONO % 6.8 % (3.8-10.2); NEUT % 75.4 % (42.8-82.8); PLATELET COUNT 707 10^3/uL (134-434); RBC 2.88 M/mm3 (4.00-5.60); RDW 16.2 % (11.9-15.9)
[2021-05-07 06:59] LABS: CHLORIDE 106 mmol/L (98-107); SODIUM 143 mmol/L (136-145)
[2021-05-07] MEDS ORDERED: EPOETIN ALFA-EPBX 4,000 UNIT/ML VIAL SQ ONE (07:00)
[2021-05-07] MEDS ORDERED: SODIUM CHLORIDE 250 ML IV PRN (07:00)
[2021-05-07 07:02] LABS: CALCIUM 8.4 mg/dL (8.5-10.1)
[2021-05-07 07:03] LABS: ALBUMIN 1.8 g/dl (3.4-5.0); ANION GAP 9 MMOL/L (8-16); BLOOD UREA NITROGEN 48.5 mg/dL (7-18); CO2 27 mmol/L (21-32); GLUCOSE,RANDOM 79 mg/dL (74-106); MAGNESIUM 2.3 mg/dL (1.8-2.4)
[2021-05-07 07:06] LABS: CREATININE 5.1 mg/dL (0.55-1.3); PHOSPHOROUS 5.2 mg/dL (2.5-4.9); SGOT/AST 6 U/L (15-37)
[2021-05-07 07:07] LABS: BILIRUBIN,TOTAL 0.3 mg/dL (0.2-1); TOT PROT 6.6 g/dl (6.4-8.2)
[2021-05-07 07:08] LABS: ALK PHOS 94 U/L (45-117)
[2021-05-07 07:25] LABS: SGPT/ALT < 6 U/L (13-61)
[2021-05-07] MEDS: ALBUMIN HUMAN 25% 12.5 GM/50 ML VIAL IV SCH ×4 (08:05→12:05)
[2021-05-07] MEDS: MIDODRINE HCL 2.5 MG TABLET PO SCH ×3 (08:35→18:22)
[2021-05-07] MEDS: AMINO ACIDS/PROTEIN HYDROLYS 30 ML LIQUID.PKT PO SCH ×3 (08:40→18:22)
[2021-05-07] MEDS: CALCIUM ACETATE 667 MG CAPSULE (FP) PO SCH ×3 (08:40→18:23)
[2021-05-07] MEDS: MUPIROCIN 2% TOPICAL OINTMENT FOR DECOLONIZATION NS SCH (08:40)
[2021-05-07] MEDS: ALBUTEROL SO4 2.5/IPRATROPIUM 0.5 INH SOL 3 ML VIAL.NEB. NEB SCH ×4 (08:59→20:00)
[2021-05-07] MEDS ORDERED: DEXTROSE 5%-WATER 100 ML IVPB ONE ×2 (09:26→21:23)
[2021-05-07] MEDS ORDERED: MEROPENEM 500 MG VIAL (RESTRICTED TO ID) IVPB ONE ×2 (09:26→21:23)
[2021-05-07] MEDS: BENZTROPINE MESYLATE 2 MG TABLET PO SCH ×2 (11:12→22:04)
[2021-05-07] MEDS: DIVALPROEX SODIUM 500 MG TABLET E.C. PO SCH ×2 (11:13→22:25)
[2021-05-07] MEDS: HEPARIN NA (PORCINE) 5,000 UNITS/ML 1ML VIAL SQ SCH ×2 (11:14→22:04)
[2021-05-07] MEDS: POLYETHYLENE GLYCOL (HEALTHYLAX) 3350 17 GM PACKET PO SCH (11:14)
[2021-05-07] MEDS: NYSTATIN POWDER 100,000 UNITS/GM - 15 GM TOPICAL POWDER TP SCH ×2 (11:15→22:03)
[2021-05-07] MEDS: MEROPENEM 500 MG in DEXTROSE 5%-WATER 100 ML IVPB SCH ×2 (11:15→22:03)
[2021-05-07] MEDS: VITAMIN B COMP W-C 1 EA TABLET (NEPHRO-VITE) PO SCH (11:15)
[2021-05-07] MEDS: ZINC SULFATE 220 MG CAPSULE (FP) PO SCH (11:15)
[2021-05-07] MEDS: COLLAGENASE CLOSTRIDIUM HIST. 30 GRAMS TUBE TP SCH (11:16)
[2021-05-07] MEDS: OLANZapine 10 MG TABLET PO SCH (11:17)
[2021-05-07] MEDS ORDERED: ACETAMINOPHEN 325 MG TABLET (FP) PO PRN (16:12)
[2021-05-07] MEDS ORDERED: SENNOSIDES 8.6MG TABLET (FP) PO PRN (16:12)
[2021-05-07] MEDS ORDERED: ONDANSETRON 4 MG TABLET PO PRN (16:12)
[2021-05-07] MEDS: MELATONIN 1 MG TABLET PO SCH (22:04)
[2021-05-08] MEDS: GABAPENTIN 100 MG CAPSULE PO SCH ×3 (05:50→22:34)
[2021-05-08] MEDS: ALBUTEROL SO4 2.5/IPRATROPIUM 0.5 INH SOL 3 ML VIAL.NEB. NEB SCH ×4 (07:45→21:15)
[2021-05-08] MEDS ORDERED: MEROPENEM 500 MG VIAL (RESTRICTED TO ID) IVPB ONE ×2 (08:17→21:28)
[2021-05-08] MEDS ORDERED: DEXTROSE 5%-WATER 100 ML IVPB ONE ×2 (08:17→21:28)
[2021-05-08] MEDS: MEROPENEM 500 MG in DEXTROSE 5%-WATER 100 ML IVPB SCH ×2 (09:56→22:29)
[2021-05-08] MEDS: HEPARIN NA (PORCINE) 5,000 UNITS/ML 1ML VIAL SQ SCH ×2 (09:57→22:34)
[2021-05-08] MEDS: OLANZapine 10 MG TABLET PO SCH (09:57)
[2021-05-08] MEDS: MIDODRINE HCL 2.5 MG TABLET PO SCH ×3 (09:57→17:02)
[2021-05-08] MEDS: POLYETHYLENE GLYCOL (HEALTHYLAX) 3350 17 GM PACKET PO SCH (09:58)
[2021-05-08] MEDS: AMINO ACIDS/PROTEIN HYDROLYS 30 ML LIQUID.PKT PO SCH ×3 (09:58→16:56)
[2021-05-08] MEDS: ZINC SULFATE 220 MG CAPSULE (FP) PO SCH (09:58)
[2021-05-08] MEDS: VITAMIN B COMP W-C 1 EA TABLET (NEPHRO-VITE) PO SCH (09:58)
[2021-05-08] MEDS: BENZTROPINE MESYLATE 2 MG TABLET PO SCH ×2 (09:59→22:34)
[2021-05-08] MEDS: CALCIUM ACETATE 667 MG CAPSULE (FP) PO SCH ×3 (09:59→16:56)
[2021-05-08] MEDS: NYSTATIN POWDER 100,000 UNITS/GM - 15 GM TOPICAL POWDER TP SCH ×2 (10:03→22:35)
[2021-05-08] MEDS: COLLAGENASE CLOSTRIDIUM HIST. 30 GRAMS TUBE TP SCH (10:03)
[2021-05-08] MEDS: DIVALPROEX SODIUM 125 MG SPRINKLE CAPS PO SCH ×2 (12:55→22:34)
[2021-05-08] MEDS: DIVALPROEX SODIUM 500 MG TABLET E.C. PO SCH (17:03)
[2021-05-08] MEDS: MELATONIN 1 MG TABLET PO SCH (22:50)
[2021-05-09] MEDS: GABAPENTIN 100 MG CAPSULE PO SCH ×3 (06:27→23:06)
[2021-05-09] MEDS ORDERED: SODIUM CHLORIDE 250 ML IV PRN (07:00)
[2021-05-09] MEDS ORDERED: EPOETIN ALFA-EPBX 10,000 UNIT/ML VIAL IVPUSH ONE (07:00)
[2021-05-09 07:16] LABS: BASO % 0.6 % (0-2.0); EOS % 3.1 % (0-4.5); HEMATOCRIT 26.8 % (35.4-49); HEMOGLOBIN 8.8 GM/dL (11.7-16.9); LYMPH % 16.4 % (8-40); MCH 27.7 pg (25.7-33.7); MCHC 32.9 g/dl (32.0-35.9); MEAN PLT VOLUME 5.9 fl (7.5-11.1); NEUT % 69.9 % (42.8-82.8); PLATELET COUNT 751 10^3/uL (134-434); RBC 3.19 M/mm3 (4.00-5.60); WHITE BLOOD COUNT 11.8 K/mm3 (4.0-10.0)
[2021-05-09 07:43] LABS: CALCIUM 8.6 mg/dL (8.5-10.1)
[2021-05-09 07:44] LABS: BLOOD UREA NITROGEN 40.2 mg/dL (7-18)
[2021-05-09 07:46] LABS: CREATININE 4.5 mg/dL (0.55-1.3)
[2021-05-09 07:47] LABS: TOT PROT 6.3 g/dl (6.4-8.2)
[2021-05-09 07:48] LABS: BILIRUBIN,TOTAL 0.2 mg/dL (0.2-1)
[2021-05-09] MEDS: ALBUTEROL SO4 2.5/IPRATROPIUM 0.5 INH SOL 3 ML VIAL.NEB. NEB SCH ×4 (09:00→20:50)
[2021-05-09] MEDS ORDERED: DEXTROSE 5%-WATER 100 ML IVPB ONE ×2 (09:02→21:37)
[2021-05-09] MEDS ORDERED: MEROPENEM 500 MG VIAL (RESTRICTED TO ID) IVPB ONE ×2 (09:02→21:36)
[2021-05-09] MEDS: ZINC SULFATE 220 MG CAPSULE (FP) PO SCH (10:49)
[2021-05-09] MEDS: MEROPENEM 500 MG in DEXTROSE 5%-WATER 100 ML IVPB SCH ×2 (10:49→23:06)
[2021-05-09] MEDS: MIDODRINE HCL 2.5 MG TABLET PO SCH ×3 (10:49→17:41)
[2021-05-09] MEDS: HEPARIN NA (PORCINE) 5,000 UNITS/ML 1ML VIAL SQ SCH ×2 (10:49→23:03)
[2021-05-09] MEDS: CALCIUM ACETATE 667 MG CAPSULE (FP) PO SCH ×3 (10:50→16:38)
[2021-05-09] MEDS: DIVALPROEX SODIUM 125 MG SPRINKLE CAPS PO SCH ×2 (10:50→23:04)
[2021-05-09] MEDS: AMINO ACIDS/PROTEIN HYDROLYS 30 ML LIQUID.PKT PO SCH ×3 (10:51→17:41)
[2021-05-09] MEDS: VITAMIN B COMP W-C 1 EA TABLET (NEPHRO-VITE) PO SCH (10:52)
[2021-05-09] MEDS: OLANZapine 10 MG TABLET PO SCH (10:52)
[2021-05-09] MEDS: BENZTROPINE MESYLATE 2 MG TABLET PO SCH ×2 (10:52→23:05)
[2021-05-09] MEDS: POLYETHYLENE GLYCOL (HEALTHYLAX) 3350 17 GM PACKET PO SCH (10:53)
[2021-05-09] MEDS: NYSTATIN POWDER 100,000 UNITS/GM - 15 GM TOPICAL POWDER TP SCH ×2 (10:54→23:06)
[2021-05-09] MEDS: COLLAGENASE CLOSTRIDIUM HIST. 30 GRAMS TUBE TP SCH (10:54)
[2021-05-09] MEDS ORDERED: ONDANSETRON 4 MG TABLET PO PRN (18:38)
[2021-05-09] MEDS: MELATONIN 1 MG TABLET PO SCH (23:05)
[2021-05-10] MEDS: GABAPENTIN 100 MG CAPSULE PO SCH ×3 (05:34→21:59)
[2021-05-10] MEDS: ALBUTEROL SO4 2.5/IPRATROPIUM 0.5 INH SOL 3 ML VIAL.NEB. NEB SCH ×4 (07:40→21:42)
[2021-05-10] MEDS: AMINO ACIDS/PROTEIN HYDROLYS 30 ML LIQUID.PKT PO SCH ×3 (08:00→16:49)
[2021-05-10] MEDS: CALCIUM ACETATE 667 MG CAPSULE (FP) PO SCH ×3 (08:30→17:44)
[2021-05-10] MEDS ORDERED: MEROPENEM 500 MG VIAL (RESTRICTED TO ID) IVPB ONE ×3 (10:53→21:22)
[2021-05-10] MEDS ORDERED: DEXTROSE 5%-WATER 100 ML IVPB ONE ×3 (10:54→21:22)
[2021-05-10] MEDS: ZINC SULFATE 220 MG CAPSULE (FP) PO SCH (10:56)
[2021-05-10] MEDS: OLANZapine 10 MG TABLET PO SCH (10:56)
[2021-05-10] MEDS: MEROPENEM 500 MG in DEXTROSE 5%-WATER 100 ML IVPB SCH ×2 (10:56→21:59)
[2021-05-10] MEDS: VITAMIN B COMP W-C 1 EA TABLET (NEPHRO-VITE) PO SCH (10:56)
[2021-05-10] MEDS: HEPARIN NA (PORCINE) 5,000 UNITS/ML 1ML VIAL SQ SCH ×2 (10:56→21:59)
[2021-05-10] MEDS: POLYETHYLENE GLYCOL (HEALTHYLAX) 3350 17 GM PACKET PO SCH (10:57)
[2021-05-10] MEDS: MIDODRINE HCL 2.5 MG TABLET PO SCH ×3 (10:57→17:45)
[2021-05-10] MEDS: NYSTATIN POWDER 100,000 UNITS/GM - 15 GM TOPICAL POWDER TP SCH ×2 (11:00→22:00)
[2021-05-10] MEDS: DIVALPROEX SODIUM 125 MG SPRINKLE CAPS PO SCH ×2 (11:20→21:59)
[2021-05-10] MEDS: BENZTROPINE MESYLATE 2 MG TABLET PO SCH ×2 (11:32→21:59)
[2021-05-10] MEDS: COLLAGENASE CLOSTRIDIUM HIST. 30 GRAMS TUBE TP SCH (17:46)
[2021-05-10] MEDS: MELATONIN 1 MG TABLET PO SCH (21:59)
[2021-05-11] MEDS: GABAPENTIN 100 MG CAPSULE PO SCH ×3 (05:41→22:13)
[2021-05-11] MEDS: ALBUTEROL SO4 2.5/IPRATROPIUM 0.5 INH SOL 3 ML VIAL.NEB. NEB SCH ×4 (08:00→20:28)
[2021-05-11] MEDS: AMINO ACIDS/PROTEIN HYDROLYS 30 ML LIQUID.PKT PO SCH ×3 (08:49→17:42)
[2021-05-11] MEDS ORDERED: DEXTROSE 5%-WATER 100 ML IVPB ONE ×2 (08:52→21:01)
[2021-05-11] MEDS ORDERED: MEROPENEM 500 MG VIAL (RESTRICTED TO ID) IVPB ONE ×2 (08:52→21:01)
[2021-05-11] MEDS: CALCIUM ACETATE 667 MG CAPSULE (FP) PO SCH ×3 (08:54→17:42)
[2021-05-11] MEDS: HEPARIN NA (PORCINE) 5,000 UNITS/ML 1ML VIAL SQ SCH ×2 (09:00→22:13)
[2021-05-11] MEDS: VITAMIN B COMP W-C 1 EA TABLET (NEPHRO-VITE) PO SCH (09:00)
[2021-05-11] MEDS: MIDODRINE HCL 2.5 MG TABLET PO SCH ×3 (09:00→17:20)
[2021-05-11] MEDS: DIVALPROEX SODIUM 125 MG SPRINKLE CAPS PO SCH ×2 (09:00→22:12)
[2021-05-11] MEDS: OLANZapine 10 MG TABLET PO SCH (09:01)
[2021-05-11] MEDS: POLYETHYLENE GLYCOL (HEALTHYLAX) 3350 17 GM PACKET PO SCH (09:01)
[2021-05-11] MEDS: MEROPENEM 500 MG in DEXTROSE 5%-WATER 100 ML IVPB SCH ×2 (09:01→22:13)
[2021-05-11] MEDS: ZINC SULFATE 220 MG CAPSULE (FP) PO SCH (10:57)
[2021-05-11] MEDS: NYSTATIN POWDER 100,000 UNITS/GM - 15 GM TOPICAL POWDER TP SCH ×2 (10:58→22:14)
[2021-05-11] MEDS: BENZTROPINE MESYLATE 2 MG TABLET PO SCH ×2 (10:58→22:12)
[2021-05-11] MEDS: COLLAGENASE CLOSTRIDIUM HIST. 30 GRAMS TUBE TP SCH (15:03)
[2021-05-11] MEDS: MELATONIN 1 MG TABLET PO SCH (22:13)
[2021-05-12] MEDS: GABAPENTIN 100 MG CAPSULE PO SCH ×3 (06:36→22:20)
[2021-05-12] MEDS ORDERED: SODIUM CHLORIDE 250 ML IV PRN ×2 (07:00)
[2021-05-12] MEDS ORDERED: ALTEPLASE (CATHFLO) 2 MG/2 ML VIAL CVP ONE ×3 (07:00)
[2021-05-12] MEDS: ALBUTEROL SO4 2.5/IPRATROPIUM 0.5 INH SOL 3 ML VIAL.NEB. NEB SCH ×4 (07:45→20:21)
[2021-05-12] MEDS ORDERED: EPOETIN ALFA-EPBX 10,000 UNIT/ML VIAL IVPUSH ONE (08:00)
[2021-05-12] MEDS: CALCIUM ACETATE 667 MG CAPSULE (FP) PO SCH ×3 (08:11→17:08)
[2021-05-12] MEDS: AMINO ACIDS/PROTEIN HYDROLYS 30 ML LIQUID.PKT PO SCH ×3 (08:11→17:08)
[2021-05-12] MEDS ORDERED: MEROPENEM 500 MG VIAL (RESTRICTED TO ID) IVPB ONE ×2 (08:57→21:25)
[2021-05-12] MEDS ORDERED: DEXTROSE 5%-WATER 100 ML IVPB ONE ×2 (08:57→21:26)
[2021-05-12] MEDS: OLANZapine 10 MG TABLET PO SCH (09:01)
[2021-05-12] MEDS: VITAMIN B COMP W-C 1 EA TABLET (NEPHRO-VITE) PO SCH (09:01)
[2021-05-12] MEDS: DIVALPROEX SODIUM 125 MG SPRINKLE CAPS PO SCH ×2 (09:01→22:18)
[2021-05-12] MEDS: ZINC SULFATE 220 MG CAPSULE (FP) PO SCH (09:01)
[2021-05-12] MEDS: HEPARIN NA (PORCINE) 5,000 UNITS/ML 1ML VIAL SQ SCH ×2 (09:01→22:20)
[2021-05-12] MEDS: MIDODRINE HCL 2.5 MG TABLET PO SCH ×3 (09:01→17:08)
[2021-05-12] MEDS: POLYETHYLENE GLYCOL (HEALTHYLAX) 3350 17 GM PACKET PO SCH (09:01)
[2021-05-12] MEDS: BENZTROPINE MESYLATE 2 MG TABLET PO SCH ×2 (09:02→22:30)
[2021-05-12] MEDS: NYSTATIN POWDER 100,000 UNITS/GM - 15 GM TOPICAL POWDER TP SCH ×2 (09:09→22:22)
[2021-05-12] MEDS: MEROPENEM 500 MG in DEXTROSE 5%-WATER 100 ML IVPB SCH ×2 (09:09→22:21)
[2021-05-12] MEDS: COLLAGENASE CLOSTRIDIUM HIST. 30 GRAMS TUBE TP SCH (09:10)
[2021-05-12 11:04] LABS: HEMATOCRIT 25.7 % (35.4-49); HEMOGLOBIN 8.3 GM/dL (11.7-16.9); MCH 27.3 pg (25.7-33.7); MCHC 32.3 g/dl (32.0-35.9); MEAN CELL VOLUME 84.5 fl (80-96); PLATELET COUNT 782 10^3/uL (134-434); RBC 3.04 M/mm3 (4.00-5.60); RDW 17.3 % (11.9-15.9); WHITE BLOOD COUNT 11.6 K/mm3 (4.0-10.0)
[2021-05-12 11:05] LABS: MEAN PLT VOLUME 5.7 fl (7.5-11.1)
[2021-05-12 11:26] LABS: CALCIUM 9.1 mg/dL (8.5-10.1)
[2021-05-12 11:27] LABS: BLOOD UREA NITROGEN 58.2 mg/dL (7-18)
[2021-05-12 11:30] LABS: CREATININE 5.5 mg/dL (0.55-1.3); PHOSPHOROUS 8.2 mg/dL (2.5-4.9)
[2021-05-12] MEDS: SENNOSIDES 8.6MG TABLET (FP) PO PRN (22:20)
[2021-05-12] MEDS: MELATONIN 1 MG TABLET PO SCH (22:20)
[2021-05-13] MEDS: GABAPENTIN 100 MG CAPSULE PO SCH ×3 (05:21→22:38)
[2021-05-13] MEDS: ALBUTEROL SO4 2.5/IPRATROPIUM 0.5 INH SOL 3 ML VIAL.NEB. NEB SCH ×4 (08:20→20:15)
[2021-05-13] MEDS: AMINO ACIDS/PROTEIN HYDROLYS 30 ML LIQUID.PKT PO SCH ×3 (08:48→17:16)
[2021-05-13] MEDS: CALCIUM ACETATE 667 MG CAPSULE (FP) PO SCH ×3 (08:48→17:15)
[2021-05-13] MEDS: HEPARIN NA (PORCINE) 5,000 UNITS/ML 1ML VIAL SQ SCH ×2 (09:53→22:36)
[2021-05-13] MEDS: MIDODRINE HCL 2.5 MG TABLET PO SCH ×3 (10:08→17:15)
[2021-05-13] MEDS: BENZTROPINE MESYLATE 2 MG TABLET PO SCH ×2 (10:08→22:37)
[2021-05-13] MEDS: DIVALPROEX SODIUM 125 MG SPRINKLE CAPS PO SCH ×2 (10:08→22:42)
[2021-05-13] MEDS: POLYETHYLENE GLYCOL (HEALTHYLAX) 3350 17 GM PACKET PO SCH (10:08)
[2021-05-13] MEDS: ZINC SULFATE 220 MG CAPSULE (FP) PO SCH (10:08)
[2021-05-13] MEDS: VITAMIN B COMP W-C 1 EA TABLET (NEPHRO-VITE) PO SCH (10:08)
[2021-05-13] MEDS: OLANZapine 10 MG TABLET PO SCH (10:08)
[2021-05-13] MEDS: COLLAGENASE CLOSTRIDIUM HIST. 30 GRAMS TUBE TP SCH (10:09)
[2021-05-13] MEDS: NYSTATIN POWDER 100,000 UNITS/GM - 15 GM TOPICAL POWDER TP SCH ×2 (10:09→22:38)
[2021-05-13] MEDS ORDERED: DEXTROSE 5%-WATER 100 ML IVPB ONE ×2 (11:01→22:22)
[2021-05-13] MEDS ORDERED: MEROPENEM 500 MG VIAL (RESTRICTED TO ID) IVPB ONE ×2 (11:01→22:21)
[2021-05-13] MEDS: MEROPENEM 500 MG in DEXTROSE 5%-WATER 100 ML IVPB SCH ×2 (11:14→22:35)
[2021-05-13] MEDS ORDERED: SODIUM CHLORIDE 250 ML IV PRN (15:29)
[2021-05-13] MEDS: ACETAMINOPHEN 325 MG TABLET (FP) PO PRN ×2 (16:21→23:40)
[2021-05-13] MEDS: MELATONIN 1 MG TABLET PO SCH (22:36)
[2021-05-14] MEDS: GABAPENTIN 100 MG CAPSULE PO SCH ×3 (05:02→22:14)
[2021-05-14] MEDS: CALCIUM ACETATE 667 MG CAPSULE (FP) PO SCH ×3 (07:47→17:48)
[2021-05-14] MEDS: AMINO ACIDS/PROTEIN HYDROLYS 30 ML LIQUID.PKT PO SCH ×3 (07:47→17:48)
[2021-05-14] MEDS: ALBUTEROL SO4 2.5/IPRATROPIUM 0.5 INH SOL 3 ML VIAL.NEB. NEB SCH ×3 (07:55→16:13)
[2021-05-14] MEDS: ACETAMINOPHEN 325 MG TABLET (FP) PO PRN (09:07)
[2021-05-14] MEDS ORDERED: DEXTROSE 5%-WATER 100 ML IVPB ONE ×2 (09:15→22:01)
[2021-05-14] MEDS ORDERED: MEROPENEM 500 MG VIAL (RESTRICTED TO ID) IVPB ONE ×2 (09:15→22:01)
[2021-05-14] MEDS ORDERED: EPOETIN ALFA-EPBX 10,000 UNIT/ML VIAL IVPUSH ONE (10:00)
[2021-05-14 10:13] LABS: BASO % 0.9 % (0-2.0); EOS % 2.8 % (0-4.5); HEMATOCRIT 25.2 % (35.4-49); HEMOGLOBIN 8.2 GM/dL (11.7-16.9); LYMPH % 12.4 % (8-40); MCH 27.7 pg (25.7-33.7); MCHC 32.5 g/dl (32.0-35.9); MEAN CELL VOLUME 85.1 fl (80-96); MEAN PLT VOLUME 6.2 fl (7.5-11.1); MONO % 6.7 % (3.8-10.2); NEUT % 77.2 % (42.8-82.8); PLATELET COUNT 660 10^3/uL (134-434); RBC 2.96 M/mm3 (4.00-5.60); RDW 18.1 % (11.9-15.9); WHITE BLOOD COUNT 14.4 K/mm3 (4.0-10.0)
[2021-05-14 10:33] LABS: BLOOD UREA NITROGEN 47.4 mg/dL (7-18); CALCIUM 8.8 mg/dL (8.5-10.1)
[2021-05-14 10:34] LABS: ALBUMIN 1.8 g/dl (3.4-5.0)
[2021-05-14 10:37] LABS: CREATININE 4.4 mg/dL (0.55-1.3)
[2021-05-14 10:38] LABS: BILIRUBIN,TOTAL 0.2 mg/dL (0.2-1); TOT PROT 6.5 g/dl (6.4-8.2)
[2021-05-14] MEDS: MEROPENEM 500 MG in DEXTROSE 5%-WATER 100 ML IVPB SCH ×2 (12:35→22:17)
[2021-05-14] MEDS: DIVALPROEX SODIUM 125 MG SPRINKLE CAPS PO SCH ×2 (13:02→22:17)
[2021-05-14] MEDS: MIDODRINE HCL 2.5 MG TABLET PO SCH ×3 (13:02→17:48)
[2021-05-14] MEDS: OLANZapine 10 MG TABLET PO SCH (13:02)
[2021-05-14] MEDS: VITAMIN B COMP W-C 1 EA TABLET (NEPHRO-VITE) PO SCH (13:03)
[2021-05-14] MEDS: POLYETHYLENE GLYCOL (HEALTHYLAX) 3350 17 GM PACKET PO SCH (13:03)
[2021-05-14] MEDS: ZINC SULFATE 220 MG CAPSULE (FP) PO SCH (13:03)
[2021-05-14] MEDS: NYSTATIN POWDER 100,000 UNITS/GM - 15 GM TOPICAL POWDER TP SCH ×2 (13:04→22:13)
[2021-05-14] MEDS: COLLAGENASE CLOSTRIDIUM HIST. 30 GRAMS TUBE TP SCH (13:04)
[2021-05-14] MEDS: HEPARIN NA (PORCINE) 5,000 UNITS/ML 1ML VIAL SQ SCH ×2 (13:04→22:18)
[2021-05-14] MEDS: BENZTROPINE MESYLATE 2 MG TABLET PO SCH ×2 (13:41→22:14)
[2021-05-14] MEDS: traMADol HCL 50 MG TABLET PO PRN ×2 (13:53→22:14)
[2021-05-14] MEDS: MELATONIN 1 MG TABLET PO SCH (22:16)
[2021-05-15] MEDS: GABAPENTIN 100 MG CAPSULE PO SCH ×3 (06:28→23:15)
[2021-05-15] MEDS: CALCIUM ACETATE 667 MG CAPSULE (FP) PO SCH ×3 (08:22→17:50)
[2021-05-15] MEDS: AMINO ACIDS/PROTEIN HYDROLYS 30 ML LIQUID.PKT PO SCH ×3 (08:22→17:50)
[2021-05-15] MEDS ORDERED: MEROPENEM 500 MG VIAL (RESTRICTED TO ID) IVPB ONE ×2 (09:57→21:20)
[2021-05-15] MEDS ORDERED: DEXTROSE 5%-WATER 100 ML IVPB ONE ×2 (09:58→21:20)
[2021-05-15] MEDS: ZINC SULFATE 220 MG CAPSULE (FP) PO SCH (10:10)
[2021-05-15] MEDS: BENZTROPINE MESYLATE 2 MG TABLET PO SCH ×2 (10:10→23:15)
[2021-05-15] MEDS: MEROPENEM 500 MG in DEXTROSE 5%-WATER 100 ML IVPB SCH ×2 (10:10→23:15)
[2021-05-15] MEDS: OLANZapine 10 MG TABLET PO SCH (10:10)
[2021-05-15] MEDS: VITAMIN B COMP W-C 1 EA TABLET (NEPHRO-VITE) PO SCH (10:11)
[2021-05-15] MEDS: MIDODRINE HCL 2.5 MG TABLET PO SCH ×3 (10:11→17:50)
[2021-05-15] MEDS: DIVALPROEX SODIUM 125 MG SPRINKLE CAPS PO SCH ×2 (10:11→23:15)
[2021-05-15] MEDS: HEPARIN NA (PORCINE) 5,000 UNITS/ML 1ML VIAL SQ SCH ×2 (10:11→23:15)
[2021-05-15] MEDS: POLYETHYLENE GLYCOL (HEALTHYLAX) 3350 17 GM PACKET PO SCH (10:12)
[2021-05-15] MEDS: COLLAGENASE CLOSTRIDIUM HIST. 30 GRAMS TUBE TP SCH (10:44)
[2021-05-15] MEDS: NYSTATIN POWDER 100,000 UNITS/GM - 15 GM TOPICAL POWDER TP SCH ×2 (10:44→23:15)
[2021-05-15] MEDS: MELATONIN 1 MG TABLET PO SCH (23:15)
[2021-05-16] MEDS: GABAPENTIN 100 MG CAPSULE PO SCH ×3 (06:30→22:33)
[2021-05-16] MEDS ORDERED: MEROPENEM 500 MG VIAL (RESTRICTED TO ID) IVPB ONE ×2 (08:59→21:51)
[2021-05-16] MEDS ORDERED: DEXTROSE 5%-WATER 100 ML IVPB ONE ×2 (09:00→21:52)
[2021-05-16] MEDS: MEROPENEM 500 MG in DEXTROSE 5%-WATER 100 ML IVPB SCH ×2 (09:05→22:33)
[2021-05-16] MEDS ORDERED: SODIUM CHLORIDE 250 ML IV PRN (09:11)
[2021-05-16] MEDS: POLYETHYLENE GLYCOL (HEALTHYLAX) 3350 17 GM PACKET PO SCH (09:12)
[2021-05-16] MEDS: AMINO ACIDS/PROTEIN HYDROLYS 30 ML LIQUID.PKT PO SCH ×3 (09:12→17:26)
[2021-05-16] MEDS: BENZTROPINE MESYLATE 2 MG TABLET PO SCH ×2 (09:13→22:33)
[2021-05-16] MEDS: DIVALPROEX SODIUM 125 MG SPRINKLE CAPS PO SCH ×2 (09:13→22:33)
[2021-05-16] MEDS: VITAMIN B COMP W-C 1 EA TABLET (NEPHRO-VITE) PO SCH (09:13)
[2021-05-16] MEDS: MIDODRINE HCL 2.5 MG TABLET PO SCH ×3 (09:13→17:26)
[2021-05-16] MEDS: ZINC SULFATE 220 MG CAPSULE (FP) PO SCH (09:13)
[2021-05-16] MEDS: OLANZapine 10 MG TABLET PO SCH (09:13)
[2021-05-16] MEDS: CALCIUM ACETATE 667 MG CAPSULE (FP) PO SCH ×3 (09:13→17:26)
[2021-05-16] MEDS ORDERED: EPOETIN ALFA-EPBX 10,000 UNIT/ML VIAL IVPUSH ONE (09:15)
[2021-05-16] MEDS: HEPARIN NA (PORCINE) 5,000 UNITS/ML 1ML VIAL SQ SCH (09:23)
[2021-05-16 10:15] LABS: BASO % 0.8 % (0-2.0); EOS % 2.6 % (0-4.5); HEMATOCRIT 25.5 % (35.4-49); HEMOGLOBIN 8.3 GM/dL (11.7-16.9); LYMPH % 13.8 % (8-40); MCHC 32.7 g/dl (32.0-35.9); MEAN CELL VOLUME 85.6 fl (80-96); MEAN PLT VOLUME 6.1 fl (7.5-11.1); MONO % 6.2 % (3.8-10.2); NEUT % 76.6 % (42.8-82.8); PLATELET COUNT 606 10^3/uL (134-434); RBC 2.98 M/mm3 (4.00-5.60); WHITE BLOOD COUNT 14.5 K/mm3 (4.0-10.0)
[2021-05-16 10:33] LABS: CALCIUM 8.6 mg/dL (8.5-10.1)
[2021-05-16 10:34] LABS: ALBUMIN 1.6 g/dl (3.4-5.0); BLOOD UREA NITROGEN 47.5 mg/dL (7-18)
[2021-05-16 10:37] LABS: CREATININE 4.4 mg/dL (0.55-1.3)
[2021-05-16 10:38] LABS: BILIRUBIN,TOTAL 0.5 mg/dL (0.2-1); TOT PROT 6.7 g/dl (6.4-8.2)
[2021-05-16] MEDS: traMADol HCL 50 MG TABLET PO PRN (13:49)
[2021-05-16] MEDS: COLLAGENASE CLOSTRIDIUM HIST. 30 GRAMS TUBE TP SCH (13:51)
[2021-05-16] MEDS: NYSTATIN POWDER 100,000 UNITS/GM - 15 GM TOPICAL POWDER TP SCH ×3 (13:51→22:34)
[2021-05-16] MEDS: MELATONIN 1 MG TABLET PO SCH (22:32)
[2021-05-17] MEDS: GABAPENTIN 100 MG CAPSULE PO SCH ×3 (05:27→21:50)
[2021-05-17] MEDS ORDERED: MEROPENEM 500 MG VIAL (RESTRICTED TO ID) IVPB ONE ×2 (09:56→21:19)
[2021-05-17] MEDS ORDERED: DEXTROSE 5%-WATER 100 ML IVPB ONE ×2 (09:56→21:20)
[2021-05-17] MEDS: traMADol HCL 50 MG TABLET PO PRN (10:04)
[2021-05-17] MEDS: DIVALPROEX SODIUM 125 MG SPRINKLE CAPS PO SCH ×2 (10:04→21:50)
[2021-05-17] MEDS: MIDODRINE HCL 2.5 MG TABLET PO SCH ×3 (10:04→17:20)
[2021-05-17] MEDS: BENZTROPINE MESYLATE 2 MG TABLET PO SCH ×2 (10:05→21:51)
[2021-05-17] MEDS: ZINC SULFATE 220 MG CAPSULE (FP) PO SCH (10:06)
[2021-05-17] MEDS: VITAMIN B COMP W-C 1 EA TABLET (NEPHRO-VITE) PO SCH (10:06)
[2021-05-17] MEDS: OLANZapine 10 MG TABLET PO SCH (10:06)
[2021-05-17] MEDS: AMINO ACIDS/PROTEIN HYDROLYS 30 ML LIQUID.PKT PO SCH ×3 (10:07→17:20)
[2021-05-17] MEDS: NYSTATIN POWDER 100,000 UNITS/GM - 15 GM TOPICAL POWDER TP SCH ×2 (10:07→21:52)
[2021-05-17] MEDS: MEROPENEM 500 MG in DEXTROSE 5%-WATER 100 ML IVPB SCH ×2 (10:07→21:51)
[2021-05-17] MEDS: CALCIUM ACETATE 667 MG CAPSULE (FP) PO SCH ×3 (10:07→17:20)
[2021-05-17] MEDS: POLYETHYLENE GLYCOL (HEALTHYLAX) 3350 17 GM PACKET PO SCH (10:07)
[2021-05-17] MEDS: COLLAGENASE CLOSTRIDIUM HIST. 30 GRAMS TUBE TP SCH (10:08)
[2021-05-17] MEDS: SENNOSIDES 8.6MG TABLET (FP) PO PRN (21:50)
[2021-05-17] MEDS: MELATONIN 1 MG TABLET PO SCH (21:51)
[2021-05-18] MEDS: GABAPENTIN 100 MG CAPSULE PO SCH ×3 (05:34→21:52)
[2021-05-18] MEDS: AMINO ACIDS/PROTEIN HYDROLYS 30 ML LIQUID.PKT PO SCH ×3 (08:36→17:39)
[2021-05-18] MEDS: CALCIUM ACETATE 667 MG CAPSULE (FP) PO SCH ×3 (08:36→17:39)
[2021-05-18] MEDS ORDERED: MEROPENEM 500 MG VIAL (RESTRICTED TO ID) IVPB ONE ×2 (09:23→21:45)
[2021-05-18] MEDS ORDERED: DEXTROSE 5%-WATER 100 ML IVPB ONE ×2 (09:23→21:46)
[2021-05-18] MEDS: BENZTROPINE MESYLATE 2 MG TABLET PO SCH ×2 (09:28→21:52)
[2021-05-18] MEDS: MIDODRINE HCL 2.5 MG TABLET PO SCH ×3 (09:28→17:39)
[2021-05-18] MEDS: OLANZapine 10 MG TABLET PO SCH (09:28)
[2021-05-18] MEDS: VITAMIN B COMP W-C 1 EA TABLET (NEPHRO-VITE) PO SCH (09:28)
[2021-05-18] MEDS: DIVALPROEX SODIUM 125 MG SPRINKLE CAPS PO SCH ×2 (09:28→21:52)
[2021-05-18] MEDS: POLYETHYLENE GLYCOL (HEALTHYLAX) 3350 17 GM PACKET PO SCH (09:29)
[2021-05-18] MEDS: MEROPENEM 500 MG in DEXTROSE 5%-WATER 100 ML IVPB SCH ×2 (09:29→21:53)
[2021-05-18] MEDS: COLLAGENASE CLOSTRIDIUM HIST. 30 GRAMS TUBE TP SCH (09:29)
[2021-05-18] MEDS: NYSTATIN POWDER 100,000 UNITS/GM - 15 GM TOPICAL POWDER TP SCH ×2 (09:29→21:53)
[2021-05-18] MEDS ORDERED: ACETAMINOPHEN WITH CODEINE 300MG/30MG TABLET PO PRN (09:47)
[2021-05-18] MEDS: ZINC SULFATE 220 MG CAPSULE (FP) PO SCH (10:18)
[2021-05-18] MEDS: SENNOSIDES 8.6MG TABLET (FP) PO PRN (21:52)
[2021-05-18] MEDS: MELATONIN 1 MG TABLET PO SCH (21:52)
[2021-05-19 00:06] LABS: SARS-CoV-2 NAA Not Detected (Not Detected)
[2021-05-19] MEDS: GABAPENTIN 100 MG CAPSULE PO SCH ×3 (05:07→21:03)
[2021-05-19] MEDS ORDERED: EPOETIN ALFA-EPBX 10,000 UNIT/ML VIAL IVPUSH ONE (10:00)
[2021-05-19] MEDS ORDERED: SODIUM CHLORIDE 250 ML IV PRN (10:00)
[2021-05-19] MEDS ORDERED: EPOETIN ALFA-EPBX 10,000 UNIT/ML VIAL SQ ONE (10:00)
[2021-05-19 10:36] LABS: HEMATOCRIT 25.9 % (35.4-49); HEMOGLOBIN 8.3 GM/dL (11.7-16.9); MCH 27.7 pg (25.7-33.7); MCHC 32.2 g/dl (32.0-35.9); MEAN PLT VOLUME 6.6 fl (7.5-11.1); PLATELET COUNT 561 10^3/uL (134-434); RBC 3.01 M/mm3 (4.00-5.60); RDW 18.2 % (11.9-15.9); WHITE BLOOD COUNT 11.7 K/mm3 (4.0-10.0)
[2021-05-19 10:50] LABS: CALCIUM 9.2 mg/dL (8.5-10.1)
[2021-05-19 10:51] LABS: BLOOD UREA NITROGEN 60.7 mg/dL (7-18)
[2021-05-19 10:54] LABS: CREATININE 5.2 mg/dL (0.55-1.3)
[2021-05-19] MEDS: AMINO ACIDS/PROTEIN HYDROLYS 30 ML LIQUID.PKT PO SCH ×3 (11:08→17:53)
[2021-05-19] MEDS: CALCIUM ACETATE 667 MG CAPSULE (FP) PO SCH ×3 (11:08→17:53)
[2021-05-19] MEDS: BENZTROPINE MESYLATE 2 MG TABLET PO SCH ×2 (11:08→21:04)
[2021-05-19] MEDS: DIVALPROEX SODIUM 125 MG SPRINKLE CAPS PO SCH ×2 (11:08→21:03)
[2021-05-19] MEDS: MEROPENEM 500 MG in DEXTROSE 5%-WATER 100 ML IVPB SCH ×3 (11:09→21:06)
[2021-05-19] MEDS: POLYETHYLENE GLYCOL (HEALTHYLAX) 3350 17 GM PACKET PO SCH (11:09)
[2021-05-19] MEDS: VITAMIN B COMP W-C 1 EA TABLET (NEPHRO-VITE) PO SCH (11:09)
[2021-05-19] MEDS: NYSTATIN POWDER 100,000 UNITS/GM - 15 GM TOPICAL POWDER TP SCH ×2 (11:10→21:02)
[2021-05-19] MEDS: MIDODRINE HCL 2.5 MG TABLET PO SCH ×3 (11:10→17:53)
[2021-05-19] MEDS: ZINC SULFATE 220 MG CAPSULE (FP) PO SCH (11:10)
[2021-05-19] MEDS: COLLAGENASE CLOSTRIDIUM HIST. 30 GRAMS TUBE TP SCH (11:10)
[2021-05-19] MEDS: OLANZapine 10 MG TABLET PO SCH (11:11)
[2021-05-19] MEDS ORDERED: DEXTROSE 5%-WATER 100 ML IVPB ONE ×2 (14:28→20:33)
[2021-05-19] MEDS ORDERED: MEROPENEM 500 MG VIAL (RESTRICTED TO ID) IVPB ONE ×2 (14:28→20:33)
[2021-05-19] MEDS: SENNOSIDES 8.6MG TABLET (FP) PO PRN (21:03)
[2021-05-19] MEDS: MELATONIN 1 MG TABLET PO SCH (21:03)
[2021-05-20] MEDS: GABAPENTIN 100 MG CAPSULE PO SCH ×3 (05:03→22:24)
[2021-05-20] MEDS: ACETAMINOPHEN 325 MG TABLET (FP) PO PRN (05:04)
[2021-05-20] MEDS: CALCIUM ACETATE 667 MG CAPSULE (FP) PO SCH ×3 (08:00→18:02)
[2021-05-20] MEDS: AMINO ACIDS/PROTEIN HYDROLYS 30 ML LIQUID.PKT PO SCH ×3 (08:00→18:02)
[2021-05-20] MEDS ORDERED: MIDODRINE HCL 2.5 MG TABLET PO SCH (10:00)
[2021-05-20] MEDS ORDERED: MEROPENEM 500 MG VIAL (RESTRICTED TO ID) IVPB ONE ×2 (11:54→21:47)
[2021-05-20] MEDS ORDERED: DEXTROSE 5%-WATER 100 ML IVPB ONE ×2 (11:54→21:48)
[2021-05-20] MEDS: MIDODRINE HCL 2.5 MG TABLET PO SCH ×3 (12:02→18:08)
[2021-05-20] MEDS: VITAMIN B COMP W-C 1 EA TABLET (NEPHRO-VITE) PO SCH (12:02)
[2021-05-20] MEDS: POLYETHYLENE GLYCOL (HEALTHYLAX) 3350 17 GM PACKET PO SCH (12:03)
[2021-05-20] MEDS: MEROPENEM 500 MG in DEXTROSE 5%-WATER 100 ML IVPB SCH ×2 (12:03→22:21)
[2021-05-20] MEDS: BENZTROPINE MESYLATE 2 MG TABLET PO SCH ×2 (12:03→22:24)
[2021-05-20] MEDS: ZINC SULFATE 220 MG CAPSULE (FP) PO SCH (12:03)
[2021-05-20] MEDS: NYSTATIN POWDER 100,000 UNITS/GM - 15 GM TOPICAL POWDER TP SCH ×2 (12:04→22:25)
[2021-05-20] MEDS: OLANZapine 10 MG TABLET PO SCH (12:07)
[2021-05-20] MEDS: DIVALPROEX SODIUM 125 MG SPRINKLE CAPS PO SCH ×2 (13:10→22:22)
[2021-05-20] MEDS: COLLAGENASE CLOSTRIDIUM HIST. 30 GRAMS TUBE TP SCH (14:19)
[2021-05-20] MEDS: MELATONIN 1 MG TABLET PO SCH (22:23)
[2021-05-21] MEDS: GABAPENTIN 100 MG CAPSULE PO SCH ×3 (05:37→21:15)
[2021-05-21] MEDS: CALCIUM ACETATE 667 MG CAPSULE (FP) PO SCH ×3 (08:55→17:26)
[2021-05-21] MEDS: AMINO ACIDS/PROTEIN HYDROLYS 30 ML LIQUID.PKT PO SCH ×3 (08:55→17:26)
[2021-05-21] MEDS: POLYETHYLENE GLYCOL (HEALTHYLAX) 3350 17 GM PACKET PO SCH (09:08)
[2021-05-21] MEDS: NYSTATIN POWDER 100,000 UNITS/GM - 15 GM TOPICAL POWDER TP SCH ×2 (09:33→21:17)
[2021-05-21] MEDS: COLLAGENASE CLOSTRIDIUM HIST. 30 GRAMS TUBE TP SCH (09:33)
[2021-05-21] MEDS: MIDODRINE HCL 2.5 MG TABLET PO SCH (09:33)
[2021-05-21] MEDS ORDERED: MEROPENEM 500 MG VIAL (RESTRICTED TO ID) IVPB ONE ×2 (10:02→20:41)
[2021-05-21] MEDS ORDERED: DEXTROSE 5%-WATER 100 ML IVPB ONE ×2 (10:02→20:41)
[2021-05-21] MEDS: ZINC SULFATE 220 MG CAPSULE (FP) PO SCH ×2 (10:06→14:34)
[2021-05-21] MEDS: VITAMIN B COMP W-C 1 EA TABLET (NEPHRO-VITE) PO SCH ×2 (10:06→14:34)
[2021-05-21] MEDS: MEROPENEM 500 MG in DEXTROSE 5%-WATER 100 ML IVPB SCH ×3 (10:06→21:14)
[2021-05-21] MEDS: OLANZapine 10 MG TABLET PO SCH ×2 (10:06→14:34)
[2021-05-21] MEDS: DIVALPROEX SODIUM 125 MG SPRINKLE CAPS PO SCH ×3 (10:06→21:14)
[2021-05-21] MEDS: BENZTROPINE MESYLATE 2 MG TABLET PO SCH ×3 (10:06→21:15)
[2021-05-21 10:44] LABS: HEMATOCRIT 26.7 % (35.4-49); MCH 28.6 pg (25.7-33.7); MCHC 33.6 g/dl (32.0-35.9); MEAN CELL VOLUME 85.3 fl (80-96); MEAN PLT VOLUME 6.3 fl (7.5-11.1); PLATELET COUNT 517 10^3/uL (134-434); RBC 3.13 M/mm3 (4.00-5.60); RDW 17.8 % (11.9-15.9); WHITE BLOOD COUNT 10.6 K/mm3 (4.0-10.0)
[2021-05-21] MEDS ORDERED: EPOETIN ALFA-EPBX 10,000 UNIT/ML VIAL IVPUSH ONE (11:00)
[2021-05-21] MEDS ORDERED: SODIUM CHLORIDE 250 ML IV PRN (11:00)
[2021-05-21 11:14] LABS: CALCIUM 9.4 mg/dL (8.5-10.1)
[2021-05-21 11:17] LABS: CREATININE 4.5 mg/dL (0.55-1.3)
[2021-05-21] MEDS: ACETAMINOPHEN 325 MG TABLET (FP) PO PRN (20:42)
[2021-05-21] MEDS: MELATONIN 1 MG TABLET PO SCH (21:15)
[2021-05-21] MEDS: metroNIDAZOLE 250 MG TABLET PO SCH (21:16)
[2021-05-22] MEDS: GABAPENTIN 100 MG CAPSULE PO SCH ×3 (06:19→21:32)
[2021-05-22] MEDS: AMINO ACIDS/PROTEIN HYDROLYS 30 ML LIQUID.PKT PO SCH ×3 (08:16→17:25)
[2021-05-22] MEDS: CALCIUM ACETATE 667 MG CAPSULE (FP) PO SCH ×3 (08:16→17:25)
[2021-05-22] MEDS ORDERED: MEROPENEM 500 MG VIAL (RESTRICTED TO ID) IVPB ONE ×2 (09:49→21:05)
[2021-05-22] MEDS ORDERED: DEXTROSE 5%-WATER 100 ML IVPB ONE ×2 (09:49→21:05)
[2021-05-22] MEDS: OLANZapine 10 MG TABLET PO SCH (09:58)
[2021-05-22] MEDS: VITAMIN B COMP W-C 1 EA TABLET (NEPHRO-VITE) PO SCH (09:58)
[2021-05-22] MEDS: metroNIDAZOLE 250 MG TABLET PO SCH ×2 (09:58→21:32)
[2021-05-22] MEDS: BENZTROPINE MESYLATE 2 MG TABLET PO SCH ×2 (09:58→21:33)
[2021-05-22] MEDS: MIDODRINE HCL 2.5 MG TABLET PO SCH (09:58)
[2021-05-22] MEDS: ZINC SULFATE 220 MG CAPSULE (FP) PO SCH (09:58)
[2021-05-22] MEDS: POLYETHYLENE GLYCOL (HEALTHYLAX) 3350 17 GM PACKET PO SCH (09:59)
[2021-05-22] MEDS: MEROPENEM 500 MG in DEXTROSE 5%-WATER 100 ML IVPB SCH ×2 (10:00→21:31)
[2021-05-22] MEDS: NYSTATIN POWDER 100,000 UNITS/GM - 15 GM TOPICAL POWDER TP SCH ×2 (10:02→21:32)
[2021-05-22] MEDS: DIVALPROEX SODIUM 125 MG SPRINKLE CAPS PO SCH ×2 (11:46→21:33)
[2021-05-22] MEDS: ACETAMINOPHEN 325 MG TABLET (FP) PO PRN ×2 (12:46→21:31)
[2021-05-22] MEDS: MELATONIN 1 MG TABLET PO SCH (21:32)
[2021-05-23] MEDS ORDERED: DEXTROSE 5%-WATER 100 ML IVPB ONE ×2 (09:35→22:01)
[2021-05-23] MEDS ORDERED: MEROPENEM 500 MG VIAL (RESTRICTED TO ID) IVPB ONE ×2 (09:35→22:00)
[2021-05-23] MEDS: OLANZapine 10 MG TABLET PO SCH (09:43)
[2021-05-23] MEDS: MEROPENEM 500 MG in DEXTROSE 5%-WATER 100 ML IVPB SCH ×2 (09:43→22:05)
[2021-05-23] MEDS: CALCIUM ACETATE 667 MG CAPSULE (FP) PO SCH ×3 (09:43→17:16)
[2021-05-23] MEDS: ZINC SULFATE 220 MG CAPSULE (FP) PO SCH (09:43)
[2021-05-23] MEDS: MIDODRINE HCL 2.5 MG TABLET PO SCH (09:44)
[2021-05-23] MEDS: VITAMIN B COMP W-C 1 EA TABLET (NEPHRO-VITE) PO SCH (09:44)
[2021-05-23] MEDS: AMINO ACIDS/PROTEIN HYDROLYS 30 ML LIQUID.PKT PO SCH ×3 (09:44→17:16)
[2021-05-23] MEDS: BENZTROPINE MESYLATE 2 MG TABLET PO SCH ×2 (09:44→22:06)
[2021-05-23] MEDS: metroNIDAZOLE 250 MG TABLET PO SCH ×2 (09:44→22:06)
[2021-05-23] MEDS: POLYETHYLENE GLYCOL (HEALTHYLAX) 3350 17 GM PACKET PO SCH (09:45)
[2021-05-23] MEDS ORDERED: EPOETIN ALFA-EPBX 10,000 UNIT/ML VIAL IVPUSH ONE (10:00)
[2021-05-23] MEDS ORDERED: SODIUM CHLORIDE 250 ML IV PRN (10:00)
[2021-05-23] MEDS: DIVALPROEX SODIUM 125 MG SPRINKLE CAPS PO SCH ×2 (14:42→22:06)
[2021-05-23] MEDS: NYSTATIN POWDER 100,000 UNITS/GM - 15 GM TOPICAL POWDER TP SCH ×2 (14:43→22:07)
[2021-05-23] MEDS: GABAPENTIN 100 MG CAPSULE PO SCH ×3 (14:49→22:06)
[2021-05-23 16:08] LABS: SARS-CoV-2 NAA Not Detected (Not Detected)
[2021-05-23] MEDS: MELATONIN 1 MG TABLET PO SCH (22:06)
[2021-05-24] MEDS: GABAPENTIN 100 MG CAPSULE PO SCH ×3 (05:28→21:55)
[2021-05-24] MEDS ORDERED: DEXTROSE 5%-WATER 100 ML IVPB ONE ×2 (08:57→20:54)
[2021-05-24] MEDS ORDERED: MEROPENEM 500 MG VIAL (RESTRICTED TO ID) IVPB ONE ×2 (08:57→20:54)
[2021-05-24] MEDS: BENZTROPINE MESYLATE 2 MG TABLET PO SCH ×2 (10:17→21:56)
[2021-05-24] MEDS: AMINO ACIDS/PROTEIN HYDROLYS 30 ML LIQUID.PKT PO SCH ×3 (10:18→16:48)
[2021-05-24] MEDS: MEROPENEM 500 MG in DEXTROSE 5%-WATER 100 ML IVPB SCH ×2 (10:18→21:56)
[2021-05-24] MEDS: metroNIDAZOLE 250 MG TABLET PO SCH ×2 (10:19→21:55)
[2021-05-24] MEDS: ZINC SULFATE 220 MG CAPSULE (FP) PO SCH (10:19)
[2021-05-24] MEDS: VITAMIN B COMP W-C 1 EA TABLET (NEPHRO-VITE) PO SCH (10:20)
[2021-05-24] MEDS: CALCIUM ACETATE 667 MG CAPSULE (FP) PO SCH ×3 (10:21→16:48)
[2021-05-24] MEDS: DIVALPROEX SODIUM 125 MG SPRINKLE CAPS PO SCH ×2 (10:21→21:55)
[2021-05-24] MEDS: NYSTATIN POWDER 100,000 UNITS/GM - 15 GM TOPICAL POWDER TP SCH ×2 (10:22→22:03)
[2021-05-24] MEDS: POLYETHYLENE GLYCOL (HEALTHYLAX) 3350 17 GM PACKET PO SCH (10:22)
[2021-05-24] MEDS: OLANZapine 10 MG TABLET PO SCH (10:22)
[2021-05-24] MEDS: MELATONIN 1 MG TABLET PO SCH (21:55)
[2021-05-25] MEDS: GABAPENTIN 100 MG CAPSULE PO SCH ×3 (06:31→20:59)
[2021-05-25] MEDS: CALCIUM ACETATE 667 MG CAPSULE (FP) PO SCH ×3 (08:23→17:21)
[2021-05-25] MEDS: AMINO ACIDS/PROTEIN HYDROLYS 30 ML LIQUID.PKT PO SCH ×3 (08:23→17:21)
[2021-05-25] MEDS ORDERED: MEROPENEM 500 MG VIAL (RESTRICTED TO ID) IVPB ONE ×2 (09:18→20:22)
[2021-05-25] MEDS ORDERED: DEXTROSE 5%-WATER 100 ML IVPB ONE ×2 (09:18→20:22)
[2021-05-25] MEDS: DIVALPROEX SODIUM 125 MG SPRINKLE CAPS PO SCH ×2 (09:21→20:59)
[2021-05-25] MEDS: VITAMIN B COMP W-C 1 EA TABLET (NEPHRO-VITE) PO SCH (09:22)
[2021-05-25] MEDS: BENZTROPINE MESYLATE 2 MG TABLET PO SCH ×2 (09:22→20:59)
[2021-05-25] MEDS: metroNIDAZOLE 250 MG TABLET PO SCH ×2 (09:22→20:59)
[2021-05-25] MEDS: POLYETHYLENE GLYCOL (HEALTHYLAX) 3350 17 GM PACKET PO SCH (09:22)
[2021-05-25] MEDS: OLANZapine 10 MG TABLET PO SCH (09:22)
[2021-05-25] MEDS: MEROPENEM 500 MG in DEXTROSE 5%-WATER 100 ML IVPB SCH ×2 (09:23→20:59)
[2021-05-25] MEDS: NYSTATIN POWDER 100,000 UNITS/GM - 15 GM TOPICAL POWDER TP SCH ×2 (09:44→20:59)
[2021-05-25] MEDS: ZINC SULFATE 220 MG CAPSULE (FP) PO SCH (09:46)
[2021-05-25] MEDS: MELATONIN 1 MG TABLET PO SCH (20:59)
[2021-05-26] MEDS: GABAPENTIN 100 MG CAPSULE PO SCH ×3 (05:38→21:50)
[2021-05-26] MEDS: AMINO ACIDS/PROTEIN HYDROLYS 30 ML LIQUID.PKT PO SCH ×3 (08:53→18:15)
[2021-05-26] MEDS: CALCIUM ACETATE 667 MG CAPSULE (FP) PO SCH ×3 (08:53→18:15)
[2021-05-26 09:43] LABS: BASO % 1.2 % (0-2.0); EOS % 5.1 % (0-4.5); HEMATOCRIT 29.8 % (35.4-49); HEMOGLOBIN 9.5 GM/dL (11.7-16.9); LYMPH % 13.2 % (8-40); MCH 27.7 pg (25.7-33.7); MCHC 31.8 g/dl (32.0-35.9); MEAN CELL VOLUME 86.9 fl (80-96); MEAN PLT VOLUME 6.7 fl (7.5-11.1); MONO % 5.8 % (3.8-10.2); NEUT % 74.7 % (42.8-82.8); PLATELET COUNT 516 10^3/uL (134-434); RBC 3.43 M/mm3 (4.00-5.60); RDW 17.3 % (11.9-15.9); WHITE BLOOD COUNT 14.6 K/mm3 (4.0-10.0)
[2021-05-26] MEDS ORDERED: MEROPENEM 500 MG VIAL (RESTRICTED TO ID) IVPB ONE ×2 (09:50→21:39)
[2021-05-26] MEDS ORDERED: DEXTROSE 5%-WATER 100 ML IVPB ONE ×2 (09:50→21:39)
[2021-05-26] MEDS: metroNIDAZOLE 250 MG TABLET PO SCH ×2 (09:57→21:50)
[2021-05-26] MEDS: POLYETHYLENE GLYCOL (HEALTHYLAX) 3350 17 GM PACKET PO SCH (09:57)
[2021-05-26] MEDS: VITAMIN B COMP W-C 1 EA TABLET (NEPHRO-VITE) PO SCH (09:57)
[2021-05-26] MEDS: OLANZapine 10 MG TABLET PO SCH (09:57)
[2021-05-26] MEDS: DIVALPROEX SODIUM 125 MG SPRINKLE CAPS PO SCH ×2 (09:57→21:49)
[2021-05-26] MEDS: MEROPENEM 500 MG in DEXTROSE 5%-WATER 100 ML IVPB SCH ×2 (09:58→21:49)
[2021-05-26] MEDS: BENZTROPINE MESYLATE 2 MG TABLET PO SCH ×2 (09:58→21:50)
[2021-05-26 10:03] LABS: CALCIUM 9.1 mg/dL (8.5-10.1)
[2021-05-26 10:04] LABS: ALBUMIN 1.9 g/dl (3.4-5.0); BLOOD UREA NITROGEN 69.8 mg/dL (7-18)
[2021-05-26 10:07] LABS: CREATININE 4.3 mg/dL (0.55-1.3)
[2021-05-26 10:08] LABS: BILIRUBIN,TOTAL 0.6 mg/dL (0.2-1); TOT PROT 6.7 g/dl (6.4-8.2)
[2021-05-26] MEDS ORDERED: EPOETIN ALFA 10,000 UNIT/1 ML VIAL IVPUSH ONE (13:00)
[2021-05-26] MEDS: NYSTATIN POWDER 100,000 UNITS/GM - 15 GM TOPICAL POWDER TP SCH ×2 (16:02→21:50)
[2021-05-26] MEDS: ZINC SULFATE 220 MG CAPSULE (FP) PO SCH (16:02)
[2021-05-26] MEDS: MELATONIN 1 MG TABLET PO SCH (21:49)
[2021-05-27] MEDS: GABAPENTIN 100 MG CAPSULE PO SCH ×3 (05:40→21:41)
[2021-05-27] MEDS ORDERED: DEXTROSE 5%-WATER 100 ML IVPB ONE ×2 (09:04→21:31)
[2021-05-27] MEDS ORDERED: MEROPENEM 500 MG VIAL (RESTRICTED TO ID) IVPB ONE ×2 (09:04→21:31)
[2021-05-27] MEDS: DIVALPROEX SODIUM 125 MG SPRINKLE CAPS PO SCH ×2 (09:33→21:41)
[2021-05-27] MEDS: CALCIUM ACETATE 667 MG CAPSULE (FP) PO SCH ×3 (09:33→17:17)
[2021-05-27] MEDS: BENZTROPINE MESYLATE 2 MG TABLET PO SCH ×2 (09:34→21:41)
[2021-05-27] MEDS: OLANZapine 10 MG TABLET PO SCH (09:34)
[2021-05-27] MEDS: AMINO ACIDS/PROTEIN HYDROLYS 30 ML LIQUID.PKT PO SCH ×3 (09:34→17:17)
[2021-05-27] MEDS: VITAMIN B COMP W-C 1 EA TABLET (NEPHRO-VITE) PO SCH (09:34)
[2021-05-27] MEDS: ZINC SULFATE 220 MG CAPSULE (FP) PO SCH (09:34)
[2021-05-27] MEDS: POLYETHYLENE GLYCOL (HEALTHYLAX) 3350 17 GM PACKET PO SCH (09:35)
[2021-05-27] MEDS: MEROPENEM 500 MG in DEXTROSE 5%-WATER 100 ML IVPB SCH ×2 (09:35→21:40)
[2021-05-27] MEDS: metroNIDAZOLE 250 MG TABLET PO SCH ×2 (09:35→21:41)
[2021-05-27] MEDS: NYSTATIN POWDER 100,000 UNITS/GM - 15 GM TOPICAL POWDER TP SCH ×2 (09:50→22:26)
[2021-05-27] MEDS: MELATONIN 1 MG TABLET PO SCH (21:41)
[2021-05-28] MEDS: GABAPENTIN 100 MG CAPSULE PO SCH ×2 (05:53→13:00)
[2021-05-28] MEDS: CALCIUM ACETATE 667 MG CAPSULE (FP) PO SCH ×3 (10:12→17:45)
[2021-05-28] MEDS: AMINO ACIDS/PROTEIN HYDROLYS 30 ML LIQUID.PKT PO SCH ×3 (10:12→17:30)
[2021-05-28] MEDS: NYSTATIN POWDER 100,000 UNITS/GM - 15 GM TOPICAL POWDER TP SCH (10:37)
[2021-05-28] MEDS ORDERED: EPOETIN ALFA-EPBX 10,000 UNIT/ML VIAL SQ ONE (11:30)
[2021-05-28] MEDS ORDERED: SODIUM CHLORIDE 250 ML IV PRN (12:47)
[2021-05-28 15:39] VITALS: BP 121/75; PULSE 89; TEMP 98
== END 2021-05-28 18:19 | DRG 380 ==
LOC: JER 14:55 → JERBED 21:25 → J8W 04-25 01:41 → J4S 05-02 20:59 → JICU 05-03 14:32 → J2W 05-07 13:53 → J8W 05-09 18:32
PROVIDERS: ADMIT Internal Medicine; ATTEND Internal Medicine
PROC: 0Y9130Z Drainage of Left Buttock with Drainage Device, Percutaneous Approach (ICD-10-PCS; principal; 2021-04-25)
PROC: 5A1D70Z Performance of Urinary Filtration, Intermittent, Less than 6 Hours Per Day (ICD-10-PCS; 2021-04-29)
PROC: 5A1D70Z Performance of Urinary Filtration, Intermittent, Less than 6 Hours Per Day (ICD-10-PCS; 2021-05-01)
PROC: 0YPBX0Z Removal of Drainage Device from Left Lower Extremity, External Approach (ICD-10-PCS; 2021-05-20)
DX: E11.69 Type 2 diabetes mellitus with other specified complication (principal); M46.28 Osteomyelitis of vertebra, sacral and sacrococcygeal region; J69.0 Pneumonitis due to inhalation of food and vomit; R65.21 Severe sepsis with septic shock; J96.01 Acute respiratory failure with hypoxia; A41.9 Sepsis, unspecified organism; L89.324 Pressure ulcer of left buttock, stage 4; L89.154 Pressure ulcer of sacral region, stage 4; F20.9 Schizophrenia, unspecified; Z86.74 Personal history of sudden cardiac arrest; N18.6 End stage renal disease; I69.351 Hemiplegia and hemiparesis following cerebral infarction affecting right dominant side; E11.22 Type 2 diabetes mellitus with diabetic chronic kidney disease; E87.5 Hyperkalemia; E83.41 Hypermagnesemia; E83.39 Other disorders of phosphorus metabolism; I48.0 Paroxysmal atrial fibrillation; R13.10 Dysphagia, unspecified; I12.0 Hypertensive chronic kidney disease with stage 5 chronic kidney disease or end stage renal disease; L03.317 Cellulitis of buttock; F31.9 Bipolar disorder, unspecified; Z99.2 Dependence on renal dialysis; L02.31 Cutaneous abscess of buttock; J44.9 Chronic obstructive pulmonary disease, unspecified; Z79.4 Long term (current) use of insulin; D64.9 Anemia, unspecified; J98.11 Atelectasis
CPT/HCPCS: 10030; 36415; 36430; 36600; 71045-TC-FY; 72170-TC-FY; 72193-TC; 73502-TC-LT-FY; 74230-TC-FY; 80048; 80053; 80164; 81003; 82550; 82803; 82962; 83735; 84100; 85025; 85027; 85610; 85651; 85730; 86140; 86704; 86705; 86803; 86850; 86900; 86901; 86922; 87040; 87070; 87075; 87076; 87086; 87186; 87205; 87340; 87517; 87522; 92611-GN; 93005; 93010; 93306-TC; 93970-TC; 94010; 94640; 97116-GP; 97162-GP; 99285-25; C9803-CS; E0372; G0480; J0885; J1644; J2997; J3370; P9047; P9058; Q5106; Q9967; U0003; U0005

== ENCOUNTER 2021-07-23 04:20 | Day surgery (SDC) | payer OTHER ==
[2021-07-22 16:06] VITALS: BMI 20.2
[2021-07-23] MEDS ORDERED: DEXTROSE 50%-WATER 25 GM/50 ML DISP.SYRIN ONE (10:09)
[2021-07-23] MEDS ORDERED: POVIDONE-IODINE OINTMENT 10% - 28.4 GM TUBE ONE (11:03)
[2021-07-23] MEDS ORDERED: PAPAVERINE HCL 30 MG/1 ML 10 ML VIAL NR ONE (11:04)
[2021-07-23] MEDS ORDERED: HEPARIN NA (PORCINE) 5,000 UNITS/ML 1ML VIAL ONE (11:04)
[2021-07-23] MEDS ORDERED: LIDOCAINE HCL 1%, 10 MG/ML (20ML VIAL) ONE (11:04)
[2021-07-23] MEDS ORDERED: MIDAZOLAM HCL 2 MG/2 ML SINGLE DOSE VIAL ONE (11:51)
[2021-07-23] MEDS ORDERED: PROPOFOL 20 ML ONE ×2 (11:51)
[2021-07-23] MEDS ORDERED: ROCURONIUM BROMIDE 50 MG/5 ML SYRINGE ONE (11:52)
[2021-07-23] MEDS ORDERED: LIDOCAINE HCL 1%, 10 MG/ML (20ML VIAL) NR ONE ×3 (12:11→12:18)
[2021-07-23] MEDS ORDERED: ceFAZolin SODIUM 1 GM VIAL IVPB ONE (12:15)
[2021-07-23 16:49] VITALS: BP 127/84; PULSE 88; TEMP 97.4
== END 2021-07-23 16:10 ==
LOC: JASU-SURG 04:20
PROVIDERS: ATTEND Surgery
PROC: 03160ZD Bypass Left Axillary Artery to Upper Arm Vein, Open Approach (ICD-10-PCS; principal; 2021-07-23 11:00)
DX: I12.0 Hypertensive chronic kidney disease with stage 5 chronic kidney disease or end stage renal disease (principal); E11.22 Type 2 diabetes mellitus with diabetic chronic kidney disease; N18.6 End stage renal disease; Z99.2 Dependence on renal dialysis
CPT/HCPCS: 82962; 94760; J1644

== ENCOUNTER 2023-10-03 09:56 | Inpatient (IN) | payer MEDICARE, OTHER ==
[2023-10-03 10:07] VITALS: BMI 30.8
[2023-10-03] MEDS ORDERED: ACETAMINOPHEN INJECTION 100 ML IVPB ONE (12:22)
[2023-10-03 12:26] LABS: BASO % 0.8 % (0-2.0); EOS % 3.5 % (0-4.5); HEMATOCRIT 28.2 % (35.4-49); HEMOGLOBIN 9.2 GM/dL (11.7-16.9); LYMPH % 22.8 % (8-40); MCHC 32.6 g/dl (32.0-35.9); MEAN CELL VOLUME 91.8 fl (80-96); MEAN PLT VOLUME 6.2 fl (7.5-11.1); MONO % 9.3 % (3.8-10.2); NEUT % 63.6 % (42.8-82.8); PLATELET COUNT 313 10^3/uL (134-434); RBC 3.08 M/mm3 (4.00-5.60); RDW 14.3 % (11.9-15.9); WHITE BLOOD COUNT 8.2 K/mm3 (4.0-10.0)
[2023-10-03] MEDS: ACETAMINOPHEN 1000 MG/100 ML BAG IVPB ONE (12:31)
[2023-10-03 12:34] LABS: INR 0.98 (0.83-1.09); PROTHROMBIN TIME (PATIENT) 11.1 SEC (9.7-13.0)
[2023-10-03 12:36] LABS: ACTIVATED PTT 35.8 SECONDS (25.2-36.5)
[2023-10-03] MEDS ORDERED: ACETAMINOPHEN 325 MG TABLET (FP) PO PRN (12:56)
[2023-10-03 12:59] LABS: CHLORIDE 104 mmol/L (98-107); POTASSIUM 4.6 mmol/L (3.5-5.1); SODIUM 141 mmol/L (136-145)
[2023-10-03 13:01] LABS: ALBUMIN 2.9 g/dl (3.4-5.0); ANION GAP 10 mmol/L (4-13); BLOOD UREA NITROGEN 82.2 mg/dL (7-18); CALCIUM 9.1 mg/dL (8.5-10.1); CO2 28 mmol/L (21-32); GLUCOSE,RANDOM 150 mg/dL (74-106); MAGNESIUM 2.6 mg/dL (1.8-2.4)
[2023-10-03 13:04] LABS: SGPT/ALT 11 U/L (13-61)
[2023-10-03 13:05] LABS: SGOT/AST 13 U/L (15-37)
[2023-10-03 13:06] LABS: BILIRUBIN,TOTAL 0.2 mg/dL (0.2-1); CREATININE 8.6 mg/dL (0.55-1.3); TOT PROT 6.9 g/dl (6.4-8.2)
[2023-10-03 13:07] LABS: ALK PHOS 112 U/L (45-117)
[2023-10-03 14:50] LABS: EPI CELLS 2 /uL (0-25.1); HYALINE CASTS 1 /uL (0-3.1); PH,URINE 5.5 (5.0-8.0); URINE APPEARANCE TURBID; URINE BILIRUBIN 1+ (NEGATIVE); URINE COLOR RED; URINE GLUCOSE (UA) NEGATIVE (NEGATIVE); URINE KETONE NEGATIVE (NEGATIVE); URINE LEUK ESTERASE 3+ (NEGATIVE); URINE NITRITE NEGATIVE (NEGATIVE); URINE PROTEIN 3+ (NEGATIVE); URINE UROBILINOGEN 0.2 mg/dL (0.2-1.0); URINE WBC 1945 /uL (0-25.8)
[2023-10-03 15:16] LABS: URINE RBC 7928 /uL (0-23.9)
[2023-10-03 15:17] LABS: URINE BACTERIA 62 /uL (0-1359); URINE CRYSTALS NONE SEEN /hpf; YEAST NONE SEEN (NEGATIVE)
[2023-10-03] MEDS: SEVELAMER CARBONATE 800 MG TAB (FP) PO SCH (17:37)
[2023-10-03] MEDS: MIDODRINE HCL 2.5 MG TABLET PO SCH (17:38)
[2023-10-03] MEDS: INSULIN ASPART SLIDING SCALE (NOVOLOG) 1 VIAL SQ SCH (17:42)
[2023-10-03] MEDS: OLANZapine 10 MG TABLET PO SCH (23:07)
[2023-10-03] MEDS: CARVEDILOL 6.25 MG TABLET (FP) PO SCH (23:07)
[2023-10-03] MEDS: CLOTRIMAZOLE 1% CREAM TP SCH (23:09)
[2023-10-04] MEDS: TORSEMIDE 20 MG TABLET (FP) PO SCH (09:21)
[2023-10-04] MEDS: DIVALPROEX NA *ER* EXTEND REL 500 MG TABLET.SA (FP) PO SCH (09:22)
[2023-10-04] MEDS ORDERED: SODIUM CHLORIDE 250 ML IV PRN (13:51)
[2023-10-04] MEDS: EPOETIN ALFA-EPBX 10,000 UNIT/ML VIAL SQ ONE (14:29)
[2023-10-04] MEDS: BISACODYL 5 MG TABLET.DR (FP) PO ONE (16:59)
[2023-10-04] MEDS: POLYETHYLENE GLYCOL 3350 255 GM BTL PO ONE (17:53)
[2023-10-05 10:17] LABS: BASO % 0.9 % (0-2.0); EOS % 2.7 % (0-4.5); HEMATOCRIT 30.2 % (35.4-49); HEMOGLOBIN 9.8 GM/dL (11.7-16.9); LYMPH % 21.1 % (8-40); MCH 29.9 pg (25.7-33.7); MCHC 32.5 g/dl (32.0-35.9); MEAN CELL VOLUME 91.9 fl (80-96); MEAN PLT VOLUME 6.7 fl (7.5-11.1); MONO % 6.7 % (3.8-10.2); NEUT % 68.6 % (42.8-82.8); PLATELET COUNT 311 10^3/uL (134-434); RBC 3.28 M/mm3 (4.00-5.60); RDW 14.2 % (11.9-15.9); WHITE BLOOD COUNT 8.6 K/mm3 (4.0-10.0)
[2023-10-05 10:23] LABS: INR 1.02 (0.83-1.09); PROTHROMBIN TIME (PATIENT) 11.5 SEC (9.7-13.0)
[2023-10-05 10:38] LABS: POTASSIUM 4.5 mmol/L (3.5-5.1)
[2023-10-05 10:44] LABS: ALBUMIN 2.9 g/dl (3.4-5.0); CALCIUM 9.3 mg/dL (8.5-10.1)
[2023-10-05 10:46] LABS: CREATININE 6.4 mg/dL (0.55-1.3)
[2023-10-05 10:48] LABS: BILIRUBIN,TOTAL 0.2 mg/dL (0.2-1); BLOOD UREA NITROGEN 46.7 mg/dL (7-18); TOT PROT 7.1 g/dl (6.4-8.2)
[2023-10-05] MEDS ORDERED: SODIUM CHLORIDE 250 ML IV PRN (13:29)
[2023-10-05] MEDS: POLYETHYLENE GLYCOL (HEALTHYLAX) 3350 17 GM PACKET PO SCH (23:16)
[2023-10-06 10:19] LABS: BASO % 0.5 % (0-2.0); EOS % 2.4 % (0-4.5); HEMATOCRIT 27.5 % (35.4-49); LYMPH % 23.7 % (8-40); MCH 29.8 pg (25.7-33.7); MCHC 32.7 g/dl (32.0-35.9); MEAN CELL VOLUME 91.3 fl (80-96); MEAN PLT VOLUME 6.3 fl (7.5-11.1); MONO % 6.7 % (3.8-10.2); NEUT % 66.7 % (42.8-82.8); PLATELET COUNT 284 10^3/uL (134-434); RBC 3.01 M/mm3 (4.00-5.60); WHITE BLOOD COUNT 8.9 K/mm3 (4.0-10.0)
[2023-10-06 10:27] LABS: INR 1.01 (0.83-1.09); PROTHROMBIN TIME (PATIENT) 11.6 SEC (9.7-13.0)
[2023-10-06] MEDS: EPOETIN ALFA-EPBX 10,000 UNIT/ML VIAL SQ ONE (10:34)
[2023-10-06 10:36] LABS: CHLORIDE 103 mmol/L (98-107); POTASSIUM 4.6 mmol/L (3.5-5.1); SODIUM 141 mmol/L (136-145)
[2023-10-06 10:37] LABS: ALBUMIN 2.8 g/dl (3.4-5.0); ANION GAP 9 mmol/L (4-13); BLOOD UREA NITROGEN 53.9 mg/dL (7-18); CALCIUM 9.1 mg/dL (8.5-10.1); CO2 29 mmol/L (21-32)
[2023-10-06 10:38] LABS: GLUCOSE,RANDOM 77 mg/dL (74-106)
[2023-10-06 10:41] LABS: CREATININE 7.8 mg/dL (0.55-1.3); SGOT/AST 17 U/L (15-37); SGPT/ALT 13 U/L (13-61)
[2023-10-06 10:42] LABS: BILIRUBIN,TOTAL 0.4 mg/dL (0.2-1); TOT PROT 6.7 g/dl (6.4-8.2)
[2023-10-06 10:44] LABS: ALK PHOS 137 U/L (45-117)
[2023-10-06] MEDS: COLLAGENASE CLOSTRIDIUM HIST. 30 GRAMS TUBE TP SCH (13:19)
[2023-10-07 01:46] VITALS: RESP 18
[2023-10-07 08:30] VITALS: BP 116/72; PULSE 92; TEMP 99.1
[2023-10-08 00:07] LABS: FIBROSIS SCORE. 0.22 (0.00-0.21); HCV ALPHA 2 MACRO CHART 278 mg/dL (110-276); NECRO.INFLAM ACT.SCORE 0.03 (0.00-0.17); NECROINFLAM. ACTIVITY GRADE A0-No activity (.)
== END 2023-10-07 16:33 | disposition home or self-care (01) | DRG 377 ==
LOC: JER 09:56 → JERBED 12:31 → J6S 17:31
PROVIDERS: ADMIT Family Medicine; ATTEND Family Medicine
PROC: 5A1D70Z Performance of Urinary Filtration, Intermittent, Less than 6 Hours Per Day (ICD-10-PCS; 2023-10-06)
PROC: 5A1D70Z Performance of Urinary Filtration, Intermittent, Less than 6 Hours Per Day (ICD-10-PCS; 2023-10-06)
PROC: 0DJD8ZZ Inspection of Lower Intestinal Tract, Via Natural or Artificial Opening Endoscopic (ICD-10-PCS; principal; 2023-10-06 14:00)
DX: K92.2 Gastrointestinal hemorrhage, unspecified (principal); N18.6 End stage renal disease; R53.2 Functional quadriplegia; I69.351 Hemiplegia and hemiparesis following cerebral infarction affecting right dominant side; I12.0 Hypertensive chronic kidney disease with stage 5 chronic kidney disease or end stage renal disease; J44.9 Chronic obstructive pulmonary disease, unspecified; E11.22 Type 2 diabetes mellitus with diabetic chronic kidney disease; F31.9 Bipolar disorder, unspecified; F20.9 Schizophrenia, unspecified; I48.91 Unspecified atrial fibrillation; L89.152 Pressure ulcer of sacral region, stage 2; K62.89 Other specified diseases of anus and rectum; Z99.2 Dependence on renal dialysis
CPT/HCPCS: 36415; 76775-TC; 76856-TC; 80053; 81003; 82172; 82272; 82962; 82977; 83010; 83735; 83883; 84460; 84484; 85025; 85610; 85730; 86705; 86707; 86803; 86850; 86900; 86901; 87340; 87350; 87517; 93005; 93010; 99285-25; E0186; J0131; Q5106